=== PATIENT | male | born 1945 | race Caucasian/White ===

== ENCOUNTER 2016-04-04 08:49 | Inpatient (IN) | payer MEDICARE, OTHER ==
[~2016-04-04] VITALS: Ht 182.9 cm; Wt 81.6 kg
[~2016-04-04 08:49] MED LIST: ASPI325T PO; ENAL5 PO; METO25 PO; NITR.4 SL
[2016-04-04 08:50] VITALS: BP 141/79; PULSE 98; RESP 20; TEMP 98.2; O2SAT 98
[2016-04-04 09:06] VITALS: BP 126/85; PULSE 87; RESP 18; O2SAT 100
[2016-04-04] MEDS ORDERED: ENAL5TAB98 PO (09:11)
[2016-04-04] MEDS ORDERED: METO25TA3 PO (09:11)
[2016-04-04] MEDS ORDERED: ONDANSETRON HCL 4 MG/2 ML VIAL IV PUSH ONE (10:00)
[2016-04-04] MEDS ORDERED: MORPHINE SULFATE 4 MG/ML INJ IV PUSH ONE (10:00)
[2016-04-04 10:10] VITALS: O2SAT 99
[2016-04-04 10:19] LABS: AUTOMATED NEUTROPHIL # 16.4 TH/MM3 (1.8-7.7); BASOPHIL # 0.3 TH/MM3 (0-0.2); BASOPHIL % 1.7 % (0.0-2.0); EOSINOPHIL % 0.1 % (0.0-4.0); HEMATOCRIT 43.8 % (39.0-51.0); LYMPH % 4.2 % (9.0-44.0); LYMPHOCYTE # 0.8 TH/MM3 (1.0-4.8); MEAN CELL VOLUME 92.8 FL (80.0-100.0); MEAN CORPUSCULAR HEMOGLOBIN 31.3 PG (27.0-34.0); MEAN CORPUSCULAR HGB CONC 33.7 % (32.0-36.0); MONO % 7.2 % (0.0-8.0); NEUT % 86.8 % (16.0-70.0); PLATELET COUNT 382 TH/MM3 (150-450); RED BLOOD COUNT 4.72 MIL/MM3 (4.50-5.90); RED CELL DISTRIBUTION WIDTH 12.6 % (11.6-17.2); WHITE BLOOD COUNT 18.9 TH/MM3 (4.0-11.0)
[2016-04-04 10:20] LABS: HEMO FLAGS DIFF FINAL
[2016-04-04 10:29] LABS: APTT (PATIENT) 29.9 SEC (24.3-30.1); BICARBONATE 24.9 MEQ/L (21.0-32.0); PROTHROMBIN TIME - PATIENT 10.5 SEC (9.8-11.6)
--- NOTE | 2016-04-04 10:32 | PD ---
HPI Chief Complaint: Headache Time Seen by Provider: 09:51 Travel History International Travel<30 days: No Contact w/Intl Traveler<30days: No Traveled to known affect area: No History of Present Illness HPI 70-year-old male complains of headache, neck pain. Patient states that he started having throbbing headache for the head with radiation to the back of the head last night. Patient started having severe neck pain this morning. Patient denies any visual change. Patient denies any recent head injury. Patient denies any nausea vomiting. Patient denies any focal weakness and numbness of extremity. Patient states that his systolic blood pressure to the 90s this morning. Patient denies any chest pain or shortness of breath. Patient denies abdominal pain. PFSH Past Medical History Autoimmune Disease: No Cancer: No Cardiovascular Problems: Yes Diminished Hearing: No Endocrine: No Genitourinary: Yes Hypertension: Yes Immune Disorder: No Kidney Stones: Yes Musculoskeletal: Yes (joint soreness from baseball) Neurologic: Yes Psychiatric: No Reproductive: No Respiratory: No Immunizations Current: Yes Myocardial Infarction: Yes Influenza Vaccination: No ?: Not Past Surgical History Abdominal Surgery: Yes (hernia) Other Surgery: Yes Social History Alcohol Use: Yes (occas) Tobacco Use: No Substance Use: Yes (marijuana) Allergies-Medications (Allergen,Severity, Reaction): Coded Allergies: No Known Allergies (Unverified , 04/04/16) Reported Meds & Prescriptions Reported Meds & Active Scripts Active Reported Vasotec (Enalapril Maleate) 5 Mg Tab 5 Mg PO DAILY Metoprolol Tartrate 25 Mg Tab 12.5 Mg PO BID Review of Systems General / Constitutional: No: Fever Eyes: No: Visual changes HENT: Positive: Headaches, Neck Pain Cardiovascular: No: Chest Pain or Discomfort Respiratory: No: Shortness of Breath Gastrointestinal: No: Abdominal Pain Genitourinary: No: Dysuria Musculoskeletal: No: Pain Skin: No Rash Neurologic: No: Weakness Psychiatric: No: Depression Endocrine: No: Polydipsia Hematologic/Lymphatic: No: Easy Bruising Physical Exam Narrative GENERAL: Well-nourished, well-developed patient. SKIN: Warm and dry. HEAD: Normocephalic. EYES: No scleral icterus. No injection or drainage. Pupil 2 mm equal reactive. NECK: Supple, trachea midline. No JVD or lymphadenopathy. Moderate tenderness on palpation paraspinal areas cervical spine. No midline tenderness. Patient unable to flex or extend the neck without severe pain. CARDIOVASCULAR: Regular rate and rhythm without murmurs, gallops, or rubs. RESPIRATORY: Breath sounds equal bilaterally. No accessory muscle use. GASTROINTESTINAL: Abdomen soft, non-tender, nondistended. MUSCULOSKELETAL: No cyanosis, or edema. BACK: Nontender without obvious deformity. No CVA tenderness. Neurologic exam: Patient is awake and alert oriented 3. No obvious focal neurological deficit. Data Data Last Documented VS Vital Signs Date Time Temp Pulse Resp B/P Pulse Ox O2 Delivery O2 Flow Rate FiO2 04/04/16 10:35 18 04/04/16 10:10 99 Room Air 04/04/16 09:06 87 126/85 04/04/16 08:50 98.2 Orders Complete Blood Count With Diff (04/04/16 09:56) Basic Metabolic Panel (Bmp) (04/04/16 09:56) Prothrombin Time / Inr (Pt) (04/04/16 09:56) Act Partial Throm Time (Ptt) (04/04/16 09:56) Westergren Sedimentation Rate (04/04/16 09:56) Ct Brain W/O Iv Contrast(Rout) (04/04/16 09:56) Iv Access Insert/Monitor (04/04/16 09:56) Ecg Monitoring (04/04/16 09:56) Oximetry (04/04/16 09:56) Ct Cerv Spine W/O Contrast (04/04/16 09:56) Morphine Inj (Morphine Inj) (04/04/16 10:00) Ondansetron Inj (Zofran Inj) (04/04/16 10:00) Labs Laboratory Tests Test 04/04/16 10:11 White Blood Count 18.9 TH/MM3 Red Blood Count 4.72 MIL/MM3 Hemoglobin 14.8 GM/DL Hematocrit 43.8 % Mean Corpuscular Volume 92.8 FL Mean Corpuscular Hemoglobin 31.3 PG Mean Corpuscular Hemoglobin 33.7 % Concent Red Cell Distribution Width 12.6 % Platelet Count 382 TH/MM3 Mean Platelet Volume 7.3 FL Neutrophils (%) (Auto) 86.8 % Lymphocytes (%) (Auto) 4.2 % Monocytes (%) (Auto) 7.2 % Eosinophils (%) (Auto) 0.1 % Basophils (%) (Auto) 1.7 % Neutrophils # (Auto) 16.4 TH/MM3 Lymphocytes # (Auto) 0.8 TH/MM3 Monocytes # (Auto) 1.4 TH/MM3 Eosinophils # (Auto) 0.0 TH/MM3 Basophils # (Auto) 0.3 TH/MM3 CBC Comment DIFF FINAL Differential Comment Erythrocyte Sedimentation Rate 45 mm/hr Prothrombin Time 10.5 SEC Prothromb Time International 1.0 RATIO Ratio Activated Partial 29.9 SEC Thromboplast Time Sodium Level 135 MEQ/L Potassium Level 4.0 MEQ/L Chloride Level 100 MEQ/L Carbon Dioxide Level 24.9 MEQ/L Anion Gap 10 MEQ/L Blood Urea Nitrogen 9 MG/DL Creatinine 0.72 MG/DL Estimat Glomerular Filtration 108 ML/MIN Rate Random Glucose 151 MG/DL Calcium Level 9.3 MG/DL [facility] [place] Medical Decision Making Medical Screen Exam Complete: Yes Emergency Medical Condition: Yes Interpretation(s) Last Impressions Head CT 04/04/16 0956 Signed Impressions: Service Date/Time: Monday, April 04, 2016 10:22 - CONCLUSION: 1. No acute intracranial abnormality. 2. Mild mucosal thickening within the right maxillary sinus. Akbar Singh MD 11:42 AM. CBC WBC 18.9. 86 neutrophil. ESR 45. Sodium 135. Differential Diagnosis Differential diagnosis including migraine headache, tension headache, cluster headache, cervical strain, fracture, HNP. Narrative Course 70-year-old male with headache and neck pain. Nontraumatic. Morphine 2 mg IV. Zofran 4 mg IV. Normal saline solution 100 cc an hour. Rocephin 2 g IV. Zovirax 800 mg IV. Diagnosis Primary Impression: Cephalgia Qualified Code: R51 - Acute nonintractable headache, unspecified headache type Salvador Bhatia MD Apr 04, 2016 10:00 Salvador Bhatia MD Apr 04, 2016 10:00
--- NOTE | 2016-04-04 10:41 | RADHPO ---
EXAM DATE/TIME: 04/04/2016 10:22 [facility] COMPARISON: No previous studies available for comparison. INDICATIONS : Head and neck pain. No known injury. RADIATION DOSE: 57.25 CTDIvol (mGy) MEDICAL HISTORY : Cardiovascular disease. Hypertension. SURGICAL HISTORY : None. ENCOUNTER: Initial ACUITY: 1 day PAIN SCALE: 4/10 LOCATION: cranial TECHNIQUE: Multiple contiguous axial images were obtained of the head. Using automated exposure control and adj ustment of the mA and/or kV according to patient size, radiation dose was kept as low as reasonably a chievable to obtain optimal diagnostic quality images. FINDINGS: CEREBRUM: The ventricles are normal for age. No evidence of midline shift, mass lesion, hemorrhage or acute in farction. No extra-axial fluid collections are seen. POSTERIOR FOSSA: The cerebellum and brainstem are intact. The 4th ventricle is midline. The cerebellopontine angle i s unremarkable. EXTRACRANIAL: The visualized portion of the orbits is intact. Mild mucosal thickening is noted within the right max illary sinus. SKULL: The calvaria is intact. No evidence of skull fracture. CONCLUSION: 1. No acute intracranial abnormality. 2. Mild mucosal thickening within the right maxillary sinus. Akbar Singh MD on April 04, 2016 at 10:38 Board Certified Radiologist. This report was verified electronically.
--- NOTE | 2016-04-04 11:08 | RADHPO ---
EXAM DATE/TIME: 04/04/2016 10:22 [facility] COMPARISON: No previous studies available for comparison. INDICATIONS: Head and neck pain. No known injury. RADIATION DOSE: 26.75 CTDIvol (mGy) MEDICAL HISTORY: Cardiovascular disease. Hypertension. SURGICAL HISTORY: None. ENCOUNTER: Initial ACUITY: 1 day PAIN SCALE: 4/10 LOCATION: Neck TECHNIQUE: Volumetric scanning of the cervical spine was performed. Multiplanar reconstructions in the sagittal, coronal and oblique axial planes were performed. Using automated exposure control and adjustment o f the mA and/or kV according to patient size, radiation dose was kept as low as reasonably achievable to obtain optimal diagnostic quality images. FINDINGS: There are extensive degenerative changes in the cervical spine. Alignment is anatomic. At C1 and C2 degenerative changes are present. C2-C3: Moderate facet disease is present on the right with right neural foramina encroachment. C3-C4: Bilateral neural foramina encroachment is present. There is no significant spinal stenosis. C4-C5: Moderate uncinate ridging is present with bilateral neural foramina encroachment. Spinal stenosis is moderate. C5-C6: Moderate uncinate ridging is present with spinal stenosis. C6-C7: Moderate interspace ridging and neural foramina encroachment is present. Spinal stenosis is mild to moderate. C7-T1: The bony spinal canal is normal in size. No evidence of disc bulge or herniation. The neural forami na are bilaterally patent. CONCLUSION: 1. Degenerative changes without fracture. Jaret Patel MD FACR on April 04, 2016 at 10:45 Board Certified Radiologist. This report was verified electronically.
[2016-04-04] MEDS ORDERED: cefTRIAXone INJ 2,000 MG in SODIUM CHLORIDE 0.9% INJ 100 ML IV ONE (12:00)
[2016-04-04] MEDS ORDERED: ACYCLOVIR INJ 800 MG in SODIUM CHLORIDE 0.9% INJ 150 ML IV ONE (12:00)
[2016-04-04] MEDS: SODIUM CHLOR 0.9% 1000 ML INJ 1,000 ML IV SCH ×3 (12:22→22:22)
[2016-04-04] MEDS ORDERED: NALOXONE HCL 0.4 MG/ML AMP IV PRN (14:15)
[2016-04-04] MEDS ORDERED: ACETAMINOPHEN 325 MG TAB PO PRN (14:15)
[2016-04-04] MEDS ORDERED: ONDANSETRON HCL 4 MG/2 ML VIAL IVP PRN (14:15)
[2016-04-04 14:20] VITALS: BP 140/75
--- NOTE | 2016-04-04 15:38 | PD.CONS ---
History of Present Illness Service ID CONSULT DR SCHRADER Consult Requested By DR ABBASI Reason for Consult HEADACHE/NECK PAIN Primary Care Physician Jaret Babcock DO Diagnoses: (1) Cephalgia History of Present Illness 70 Y/O MALE RETIRED ADM WITH ACUTE ONSET OF COPPOLA AND POSTERIOR NECK PAIN THAT STARTED LAST NIGHT. HE DENIES FEVER OR CHILLS. HE STATES HE HAS NOT DONE ANY STRENUOUS ACTIVITY OTHER THAN 3 WEEKS AGO FALLING ON HIS RIGHT HIP WHILE PLAYING SOFT BALL. HE HAS NO PHOTOPHOBIA. HE IS ALSO NOTED TO HAVE SOME NECK STIFFNESS AND IT IS TENDER TO TOUCH. HE DOES NOT HAVE TEETH. NO NVD. NO RECENT PROCEDURES. WBC 18.9 (Edyta Charles) History of Present Illness Neck pain, headache. No vomiting or fever. No photophobia Travel to [facility] in Jan. (Radha Schrader MD) Review of Systems Constitutional: DENIES: Fatigue, Fever, Chills Endocrine: DENIES: Polyuria Eyes: DENIES: Eye inflammation Respiratory: DENIES: Snoring Gastrointestinal: DENIES: Black stools Genitourinary: DENIES: Urinary frequency Musculoskeletal: COMPLAINS OF: Stiffness (NECK ) Integumentary: DENIES: Nail changes Psychiatric: DENIES: Mood changes (Edyta Charles) Past Family Social History Allergies: Coded Allergies: No Known Allergies (Unverified , 04/04/16) Past Medical History PFSH Past Medical History Autoimmune Disease: No Cancer: No Cardiovascular Problems: Yes Diminished Hearing: No Endocrine: No Genitourinary: Yes Hypertension: Yes Immune Disorder: No Kidney Stones: Yes Musculoskeletal: Yes (joint soreness from baseball) Neurologic: Yes Psychiatric: No Reproductive: No Respiratory: No Immunizations Current: Yes Myocardial Infarction: Yes Influenza Vaccination: No ?: Not Past Surgical History Past Surgical History Abdominal Surgery: Yes (hernia) Other Surgery: Yes Reported Medications Reported Meds & Prescriptions Reported Meds & Active Scripts Active Reported Vasotec (Enalapril Maleate) 5 Mg Tab 5 Mg PO DAILY Metoprolol Tartrate 25 Mg Tab 12.5 Mg PO BID Family History NON CONTRIBUTORY Social History Social History Alcohol Use: Yes (occas) Tobacco Use: No Substance Use: Yes (marijuana) (Edyta Charles) Physical Exam Vital Signs Vital Signs Date Time Temp Pulse Resp B/P Pulse Ox O2 Delivery O2 Flow Rate FiO2 04/04/16 14:20 89 18 140/75 98 04/04/16 10:35 18 04/04/16 10:10 99 Room Air 04/04/16 09:06 87 18 126/85 100 Room Air 04/04/16 09:06 85 100 Room Air 04/04/16 08:50 98.2 98 20 141/79 98 Physical Exam GENERAL: This is a well-nourished, well-developed patient, in no apparent distress. SKIN: No rashes, ecchymoses or lesions. Cool and dry. HEAD: Atraumatic. Normocephalic. No temporal or scalp tenderness. EYES: Pupils equal round and reactive. Extraocular motions intact. No scleral icterus. No injection or drainage. ENT: Nose without bleeding, purulent drainage or septal hematoma. Throat without erythema, tonsillar hypertrophy or exudate. Uvula midline. Airway patent. NECK: Trachea midline. No JVD or lymphadenopathy. Supple, very tender at the nape of his neck no swelling or redness , ++ meningeal signs. CARDIOVASCULAR: Regular rate and rhythm without murmurs, gallops, or rubs. RESPIRATORY: Clear to auscultation. Breath sounds equal bilaterally. No wheezes , rales, or rhonchi. GASTROINTESTINAL: Abdomen soft, non-tender, nondistended. No hepato-splenomegaly , or palpable masses. No guarding. MUSCULOSKELETAL: Extremities without clubbing, cyanosis, or edema. No joint tenderness, effusion, or edema noted. No calf tenderness. Negative Homans sign bilaterally. NEUROLOGICAL: Awake and alert. Cranial nerves II through XII intact. Motor and sensory grossly within normal limits. Five out of 5 muscle strength in all muscle groups. Normal speech. Laboratory Laboratory Tests Test 04/04/16 10:11 White Blood Count 18.9 Red Blood Count 4.72 Hemoglobin 14.8 Hematocrit 43.8 Mean Corpuscular Volume 92.8 Mean Corpuscular Hemoglobin 31.3 Mean Corpuscular Hemoglobin 33.7 Concent Red Cell Distribution Width 12.6 Platelet Count 382 Mean Platelet Volume 7.3 Neutrophils (%) (Auto) 86.8 Lymphocytes (%) (Auto) 4.2 Monocytes (%) (Auto) 7.2 Eosinophils (%) (Auto) 0.1 Basophils (%) (Auto) 1.7 Neutrophils # (Auto) 16.4 Lymphocytes # (Auto) 0.8 Monocytes # (Auto) 1.4 Eosinophils # (Auto) 0.0 Basophils # (Auto) 0.3 CBC Comment DIFF FINAL Differential Comment Erythrocyte Sedimentation Rate 45 Prothrombin Time 10.5 Prothromb Time International 1.0 Ratio Activated Partial 29.9 Thromboplast Time Sodium Level 135 Potassium Level 4.0 Chloride Level 100 Carbon Dioxide Level 24.9 Anion Gap 10 Blood Urea Nitrogen 9 Creatinine 0.72 Estimat Glomerular Filtration 108 Rate Random Glucose 151 Calcium Level 9.3 (Edyta Charles) Physical Exam Alert/ oriented x 3- lying flat in bed No photophobia No rash No focal deficit (Radha Schrader MD) Result Diagram: 04/04/16 1011 04/04/16 1011 Assessment and Plan Problem List: (1) Cephalgia Status: Acute Plan: r/o menigitis going down for LP exam ? arthralgia continue rocephin/acyclovir add vanco for now follow trough seen exam with dr schrader (Edyta Charles) Problem List: (1) Cephalgia Status: Acute Plan: r/o menigitis going down for LP exam ? arthralgia continue rocephin/acyclovir add vanco for now follow trough seen exam with dr schrader Reviewed preliminary CSF results- Gram stain negative 0 WBC Follow CSF studies Check Blood cultures, UA and culture Continue IV Ceftriaxone and Acyclovir Stop Vancomycin Check Lyme serology (Radha Schrader MD) Problem Qualifiers (1) Cephalgia: Qualified Code: R51 - Acute nonintractable headache, unspecified headache type Edyta Charles Apr 04, 2016 15:38 Radha Schrader MD Apr 04, 2016 21:31
[2016-04-04 16:20] VITALS: BP 159/96; PULSE 71; RESP 16; TEMP 98.6; O2SAT 98
--- NOTE | 2016-04-04 16:44 | PD.RAD ---
Post Procedure Progress Note Pre Procedure Diagnosis: (1) Cephalgia Post Procedure Diagnosis: (1) Cephalgia Procedure Date: Apr 04, 2016 Supervising Radiologist: Kvng Lyles Proceduralist/Assist: Bebe Shah, RT(R)(), Farhat Hernandez RT(R) Anesthesia: Local Plan of Activity Patient Condition: Good See PACS Report for procedural detail/treatment Spinal Procedure Lumbar Puncture L3-L4 Fluid Removal (CCs): 8 Fluid Description: Clear Puncture Time: 16:27 Kvng Lyles MD Apr 04, 2016 16:44
[2016-04-04] MEDS ORDERED: Vancomycin Consult Pharmacy XX SCH (16:45)
[2016-04-04 17:43] LABS: GROSS BLOOD TUBE #1 0 (0); GROSS BLOOD TUBE #2 0 (0); GROSS BLOOD TUBE #3 0 (0); SUPERNATE COLOR TUBE #1 CLEAR (CLEAR); SUPERNATE COLOR TUBE #2 CLEAR (CLEAR); SUPERNATE COLOR TUBE #3 CLEAR (CLEAR)
[2016-04-04 17:44] LABS: CSF LYMPHOCYTES 0 %; CSF NEUTROPHILS 0 %; GROSS BLOOD TUBE #4 0 (0); SUPERNATE COLOR TUBE #4 CLEAR (CLEAR)
[2016-04-04] MEDS ORDERED: VANCOMYCIN INJ 1,700 MG in SODIUM CHLORID 0.9% 500 ML INJ 500 ML IV SCH (18:00)
[2016-04-04] MEDS: HYDROmorphone HCL PF 1 MG/ML VIAL IV PRN ×2 (18:13→22:20)
[2016-04-04 20:00] VITALS: BP 154/85; PULSE 74; PULSE 80; RESP 18; TEMP 97.6; O2SAT 98
[2016-04-04] MEDS: SODIUM CHLORIDE 0.9% FLUSH 5 ML FLUSH FLUSH SCH (20:15)
[2016-04-04] MEDS: ACYCLOVIR INJ 700 MG in SODIUM CHLORIDE 0.9% INJ 100 ML IV SCH (20:35)
[2016-04-04] MEDS: cefTRIAXone INJ 2,000 MG in SODIUM CHLORIDE 0.9% INJ 100 ML IV SCH (23:13)
[2016-04-05] VITALS (7 sets, daily range): BP systolic 128–166; BP diastolic 72–106; PULSE 62–85; RESP 16–20; TEMP 97.2–98.3; O2SAT 96–99
[2016-04-05] MEDS: SODIUM CHLOR 0.9% 1000 ML INJ 1,000 ML IV SCH ×5 (00:07→19:33)
[2016-04-05] MEDS: ACETAMINOPHEN/HYDROcodone 325 MG/5 MG TAB PO PRN ×5 (02:36→21:08)
[2016-04-05] MEDS: ACYCLOVIR INJ 700 MG in SODIUM CHLORIDE 0.9% INJ 100 ML IV SCH ×3 (04:00→20:17)
[2016-04-05 06:45] LABS: AUTOMATED NEUTROPHIL # 11.3 TH/MM3 (1.8-7.7); BASOPHIL % 0.2 % (0.0-2.0); EOSINOPHIL % 0.1 % (0.0-4.0); HEMATOCRIT 39.8 % (39.0-51.0); HEMO FLAGS DIFF FINAL; LYMPH % 9.2 % (9.0-44.0); LYMPHOCYTE # 1.3 TH/MM3 (1.0-4.8); MEAN CELL VOLUME 94.7 FL (80.0-100.0); MEAN CORPUSCULAR HEMOGLOBIN 32.1 PG (27.0-34.0); MONO % 11.3 % (0.0-8.0); NEUT % 79.2 % (16.0-70.0); PLATELET COUNT 331 TH/MM3 (150-450); RED BLOOD COUNT 4.21 MIL/MM3 (4.50-5.90); WHITE BLOOD COUNT 14.2 TH/MM3 (4.0-11.0)
[2016-04-05 07:10] LABS: CHLORIDE 101 MEQ/L (98-107); POTASSIUM 3.7 MEQ/L (3.5-5.1); SODIUM (NA) 137 MEQ/L (136-145)
[2016-04-05 07:13] LABS: ANION GAP 9 MEQ/L (5-15); BICARBONATE 27.1 MEQ/L (21.0-32.0)
[2016-04-05 07:14] LABS: BLOOD UREA NITROGEN 9 MG/DL (7-18)
[2016-04-05 07:16] LABS: ALT (GPT) LESS THAN 6 U/L (12-78); AST (GOT) 3 U/L (15-37)
[2016-04-05 07:17] LABS: GLOMERULAR FILTRATION RATE 126 ML/MIN (>89)
[2016-04-05 07:18] LABS: TOTAL BILIRUBIN ADULT 0.6 MG/DL (0.2-1.0)
[2016-04-05 07:19] LABS: ALKALINE PHOSPHATASE 49 U/L (45-117)
[2016-04-05] MEDS: SODIUM CHLORIDE 0.9% FLUSH 5 ML FLUSH FLUSH SCH ×2 (08:15→20:04)
[2016-04-05] MEDS ORDERED: PILL SPLITTER OTHER PRN (10:15)
--- NOTE | 2016-04-05 10:24 | MH ---
cc: PUNEET ABBASI MD DATE OF ADMISSION 04/04/2016 CHIEF COMPLAINT Headache HISTORY OF PRESENT ILLNESS This is a 70-year-old male with past medical and surgical history significant for hypertension, kidney stones, history of myocardial infarction, history of hernia repair who came to the ER at [facility] complaining of headache and neck pain. The patient stated that having a throbbing headache all over the head radiating to the back of the head last night and the patient started having severe neck pain this morning. The patient denies any visual changes. Denies any hearing problem. Denies any recent head injury. Denies any nausea or vomiting. Denies any diarrhea or constipation. The patient denies any focal weakness and numbness of the extremities. The patient states the systolic blood pressure was to the 90s this morning and denies any other symptoms. Other than that, nothing significant. PAST MEDICAL AND SURGICAL HISTORY As dictated above. SOCIAL HISTORY Denies smoking, drinks alcohol occasionally, abuses marijuana. Denies smoking. Lives at home with a roommate. He is retired as a teacher. ALLERGIES NO KNOWN DRUG ALLERGIES. MEDICATIONS Include: 1. Vasotec 5 mg p.o. daily 2. Metoprolol 12.5 mg twice a day REVIEW OF SYSTEMS Positive for mild headaches. All other review of systems are negative. PHYSICAL EXAMINATION This is a 70-year-old male sitting on the bed not in acute distress. VITAL SIGNS: Temperature 97.8, heart rate 74, respirations 18, blood pressure 166/89, O2 saturation 96% on room air. HEENT: Normocephalic, atraumatic. EOMI. PERRL, oral mucosa moist. NECK: Supple. No visible thyromegaly or neck mass. Trachea is central. Moderate tenderness on palpation in the paraspinal area cervical spine. No midline tenderness. Unable to flex or extend the neck without severe pain. CARDIOVASCULAR: Regular rate and rhythm. RESPIRATORY: Respirations are clear to auscultation bilaterally. ABDOMEN: Soft, nontender. Bowel sounds audible. EXTREMITIES: No cyanosis or clubbing. Full range of motion of all extremities. NEUROLOGIC: Awake, alert, and oriented x4. No focal deficits. SKIN: Warm and dry. PSYCH: The patient is cooperative, mood and affect is normal. LABORATORY DATA Include CBC is totally unremarkable except for WBC count was 18.9, now it is 14.2, neutrophils 79.2 high, monos 11.3 high. BMP totally unremarkable except for a sodium of 135 now it is 137. LFTs are normal except albumin 2.9 low. PT 10.5, INR 1.0, APTT 29.9. CSF volume is 2.0, clear, glucose 72, total protein 54. Lyme titer pending. Herpes simplex virus pending. Blood cultures x2 done negative so far. CSF culture done shows no growth in [address] scan of the brain was done shows no acute intracranial abnormality, mild mucosal thickening within the right maxillary sinus. CT cervical spine done shows degenerative changes without fracture. ASSESSMENT/PLAN 1. This is a 70-year-old male who came to the ER diagnosed with severe neck pain with decreased range of motion and neck stiffness with headache, rule out meningitis. The patient had a CSF analysis done that shows a pure protein of 54, glucose 72. The patient is on Rocephin two grams IV [id number] and also acyclovir 700 mg q8-hour also on Dilaudid for headache. Infectious disease consulted. Further recommendation per infectious disease, 2. History of hypertension, blood pressure is high. Started on home blood pressure medicine. We will start clonidine 0.1 mg q6h p.r.n. if blood pressure is above 170/90. 3. History of kidney stones. 4. DVT prophylaxis, SCD. 5. GI prophylaxis, Protonix 40 mg p.o. daily. 6. We are going to manage the patient on a daily basis and make recommendations on a daily basis. Puneet Abbasi MD EA/GALE /9:50 AM /10:06 AM
[2016-04-05] MEDS: PANTOPRAZOLE SOD 40 MG DELAYED RELEASE TAB PO SCH (11:11)
[2016-04-05] MEDS: ENALAPRIL MALEATE 5 MG TAB PO SCH (11:11)
[2016-04-05] MEDS: METOPROLOL TARTRATE 25 MG TAB PO SCH ×2 (11:11→21:07)
[2016-04-05] MEDS: cefTRIAXone INJ 2,000 MG in SODIUM CHLORIDE 0.9% INJ 100 ML IV SCH ×2 (11:13→23:05)
--- NOTE | 2016-04-05 15:23 | RADHPO ---
EXAM DATE/TIME: 03/01/2002 23:34 [facility] COMPARISON: No previous studies available for comparison. INDICATIONS : Patient with a history of headaches. MEDICAL HISTORY : Cardiovascular problems HTN SURGICAL HISTORY : Hernia surgery ENCOUNTER: Initial ACUITY: 1 day PAIN SCORE: 8/10 LOCATION: Headache LUMBAR PUNCTURE TIME: 1627 hours FLUORO TIME: 1.08 minutes ACCESS LEVEL: L3-4 FLUID: 8 cc of clear CSF was collected and sent to the laboratory for analysis. PROCEDURE : 1. Fluoroscopic guided lumbar puncture. The risks, benefits and alternatives to the procedure were explained and verbal and written consent w as obtained. The site was prepped in sterile fashion. Full sterile technique was used, including ca p, mask, sterile gloves and gown and a large sterile sheet. Hand hygiene and 2% chlorhexidine and/or betadine/alcohol prep was utilized per protocol for cutaneous antisepsis. The skin and subcutaneous tissues were infiltrated with local anesthetic solution. With fluoroscopic guidance the lumbar thecal sac was punctured at the level above. The fluid describ ed above was removed without difficulty. The patient tolerated the procedure well and there were no complications. CONCLUSION: Uncomplicated fluoroscopically guided lumbar puncture. Kvng Llyes MD on April 05, 2016 at 15:20 Board Certified Radiologist. This report was verified electronically.
[2016-04-05 17:48] LABS: BLOOD, URINE TRACE (NEG); GLUCOSE,URINE NEG (NEG); KETONE, URINE NEG (NEG); NITRITE,URINE NEG (NEG)
[2016-04-05 17:54] LABS: METHOD OF COLLECTION CLEAN CATCH; URINE COLOR YELLOW (YELLW/STRAW)
[2016-04-05 17:55] LABS: COMMENT (UR) CULT NOT INDICATED; CULTURE IF INDICATED CULT NOT INDICATED; SQUAMOUS EPITHELIAL CELL URINE 0-5 /hpf (0-5)
--- NOTE | 2016-04-05 19:06 | HHI.IDPN ---
Subjective Subjective Remarks Chart reviewwd 70 yo M presented with neck pain and headach No fever, but WBC up to 18 K LP was done to r/o meningitis CSF not cw infx Pt states significant improvement in his neck pain though he still is quite painful Heaache resolved no nausea, vomiting Antibiotics Acyclovir CFTX Past Medical History remote heavy tobacco 2 ppd, quit 10 yrs ago Allergies: Coded Allergies: No Known Allergies (Unverified , 04/04/16) Objective . Vital Signs Date Time Temp Pulse Resp B/P Pulse Ox O2 Delivery O2 Flow Rate FiO2 04/05/16 16:00 97.2 78 18 128/72 97 04/05/16 12:00 98.1 77 18 158/78 96 04/05/16 08:15 62 04/05/16 08:00 97.8 74 18 166/89 96 04/05/16 04:00 98.3 76 18 159/106 99 04/05/16 03:43 18 04/05/16 00:00 97.4 75 16 162/91 98 04/04/16 22:52 18 04/04/16 20:00 74 04/04/16 20:00 97.6 80 18 154/85 98 04/04/16 04/04/16 04/05/16 15:00 23:00 07:00 Intake Total 550 ml 520 ml 120 ml Balance 550 ml 520 ml 120 ml Intake Oral 520 ml 120 ml IV Total 550 ml # Voids 2 1 # Bowel Movements 0 0 . Laboratory Tests Test 04/04/16 04/05/16 10:11 06:10 White Blood Count 18.9 TH/MM3 14.2 TH/MM3 Red Blood Count 4.72 MIL/MM3 4.21 MIL/MM3 Hemoglobin 14.8 GM/DL 13.5 GM/DL Hematocrit 43.8 % 39.8 % Mean Corpuscular Volume 92.8 FL 94.7 FL Mean Corpuscular Hemoglobin 31.3 PG 32.1 PG Mean Corpuscular Hemoglobin 33.7 % 34.0 % Concent Red Cell Distribution Width 12.6 % 13.0 % Platelet Count 382 TH/MM3 331 TH/MM3 Mean Platelet Volume 7.3 FL 7.4 FL Neutrophils (%) (Auto) 86.8 % 79.2 % Lymphocytes (%) (Auto) 4.2 % 9.2 % Monocytes (%) (Auto) 7.2 % 11.3 % Eosinophils (%) (Auto) 0.1 % 0.1 % Basophils (%) (Auto) 1.7 % 0.2 % Neutrophils # (Auto) 16.4 TH/MM3 11.3 TH/MM3 Lymphocytes # (Auto) 0.8 TH/MM3 1.3 TH/MM3 Monocytes # (Auto) 1.4 TH/MM3 1.6 TH/MM3 Eosinophils # (Auto) 0.0 TH/MM3 0.0 TH/MM3 Basophils # (Auto) 0.3 TH/MM3 0.0 TH/MM3 CBC Comment DIFF FINAL DIFF FINAL Differential Comment Erythrocyte Sedimentation Rate 45 mm/hr Laboratory Tests Test 04/04/16 04/05/16 10:11 06:10 Sodium Level 135 MEQ/L 137 MEQ/L Potassium Level 4.0 MEQ/L 3.7 MEQ/L Chloride Level 100 MEQ/L 101 MEQ/L Carbon Dioxide Level 24.9 MEQ/L 27.1 MEQ/L Anion Gap 10 MEQ/L 9 MEQ/L Blood Urea Nitrogen 9 MG/DL 9 MG/DL Creatinine 0.72 MG/DL 0.63 MG/DL Estimat Glomerular Filtration 108 ML/MIN 126 ML/MIN Rate Random Glucose 151 MG/DL 103 MG/DL Calcium Level 9.3 MG/DL 8.7 MG/DL Total Bilirubin 0.6 MG/DL Aspartate Amino Transf 3 U/L (AST/SGOT) Alanine Aminotransferase LESS THAN 6 U/L (ALT/SGPT) Alkaline Phosphatase 49 U/L Total Protein 7.1 GM/DL Albumin 2.9 GM/DL Microbiology Date/Time Procedure Status Source Growth 04/04/16 16:27 Gram Stain - Final Resulted Cerebral Spinal Fluid Lumbar Puncture 04/04/16 16:27 CSF Culture - Preliminary Resulted Cerebral Spinal Fluid Lumbar Puncture NO GROWTH IN 24 HOURS. 04/04/16 18:00 Aerobic Blood Culture - Preliminary Resulted Blood Peripheral NO GROWTH IN 1 DAY 04/04/16 18:00 Anaerobic Blood Culture - Preliminary Resulted Blood Peripheral NO GROWTH IN 1 DAY 04/04/16 18:10 Aerobic Blood Culture - Preliminary Resulted Blood Peripheral NO GROWTH IN 1 DAY 04/04/16 18:10 Anaerobic Blood Culture - Preliminary Resulted Blood Peripheral NO GROWTH IN 1 DAY Imaging Last Impressions Head CT 04/04/16 0956 Signed Impressions: Service Date/Time: Monday, April 04, 2016 10:22 - CONCLUSION: 1. No acute intracranial abnormality. 2. Mild mucosal thickening within the right maxillary sinus. Akbar Singh MD Cervical Spine CT 04/04/16 0956 Signed Impressions: Service Date/Time: Monday, April 04, 2016 10:22 - CONCLUSION: 1. Degenerative changes without fracture. Jaret Patel MD FACR Lumbar Puncture Fluoroscopy 04/04/16 0000 Signed Impressions: Service Date/Time: Friday, March 01, 2002 23:34 - CONCLUSION: Uncomplicated fluoroscopically guided lumbar puncture. Kvng Lyles MD Physical Exam GENERAL: This is a well-nourished, well-developed patient, in no apparent distress. Stigmata of substatial weight loss present SKIN: No rashes, ecchymoses or lesions. Cool and dry. HEAD: Atraumatic. Normocephalic. No temporal or scalp tenderness. EYES: Pupils equal round and reactive. Extraocular motions intact. No scleral icterus. No injection or drainage. ENT: Nose without bleeding, purulent drainage or septal hematoma. Throat without erythema, tonsillar hypertrophy or exudate. Uvula midline. Airway patent. NECK: Trachea midline. No JVD or lymphadenopathy. Supple, very tender at the nape of his neck no swelling or redness , Limited ROM in the neck 2/2 pain Tender to palpation more so on the left side CARDIOVASCULAR: Regular rate and rhythm without murmurs, gallops, or rubs. RESPIRATORY: Clear to auscultation. Breath sounds equal bilaterally. No wheezes , rales, or rhonchi. GASTROINTESTINAL: Abdomen soft, non-tender, nondistended. No hepato-splenomegaly , or palpable masses. No guarding. MUSCULOSKELETAL: Extremities without clubbing, cyanosis, or edema. NEUROLOGICAL: Awake and alert. Cranial nerves II through XII intact. Motor and sensory grossly within normal limits. Five out of 5 muscle strength in all muscle groups. Normal speech. Assessment & Plan Remarks (1) Cephalgia, improved on empriric abx CSF not favouring menigitis continue rocephin dc acyclovir once neg HSV back fu P LP studies MRI Akanksha Daniels MD Apr 05, 2016 19:06
[2016-04-06] VITALS: BP_SYST 151; BP_SYST 161; BP_DIAS 95; BP_DIAS 96; PULSE 74; PULSE 80; RESP 20; TEMP 97.9; TEMP 98.7; O2SAT 97; O2SAT 98
[2016-04-06] MEDS: ACETAMINOPHEN/HYDROcodone 325 MG/5 MG TAB PO PRN ×6 (01:07→22:20)
[2016-04-06] MEDS: SODIUM CHLOR 0.9% 1000 ML INJ 1,000 ML IV SCH ×4 (04:13→16:07)
[2016-04-06] MEDS: ACYCLOVIR INJ 700 MG in SODIUM CHLORIDE 0.9% INJ 100 ML IV SCH ×2 (04:15→13:48)
[2016-04-06] MEDS ORDERED: PHARMACY ORDERED LAB XX ONE (05:45)
[2016-04-06 06:40] LABS: AUTOMATED NEUTROPHIL # 8.1 TH/MM3 (1.8-7.7); BASOPHIL % 0.3 % (0.0-2.0); EOSINOPHIL # 0.1 TH/MM3 (0-0.4); EOSINOPHIL % 0.5 % (0.0-4.0); LYMPH % 11.6 % (9.0-44.0); LYMPHOCYTE # 1.2 TH/MM3 (1.0-4.8); MEAN CELL VOLUME 95.5 FL (80.0-100.0); MEAN CORPUSCULAR HEMOGLOBIN 30.9 PG (27.0-34.0); MEAN CORPUSCULAR HGB CONC 32.4 % (32.0-36.0); MONO % 11.7 % (0.0-8.0); NEUT % 75.9 % (16.0-70.0); PLATELET COUNT 331 TH/MM3 (150-450); RED BLOOD COUNT 4.71 MIL/MM3 (4.50-5.90); WHITE BLOOD COUNT 10.7 TH/MM3 (4.0-11.0)
[2016-04-06 06:42] LABS: CHLORIDE 100 MEQ/L (98-107); POTASSIUM 3.8 MEQ/L (3.5-5.1); SODIUM (NA) 137 MEQ/L (136-145)
[2016-04-06 06:48] LABS: ANION GAP 8 MEQ/L (5-15); BICARBONATE 29.2 MEQ/L (21.0-32.0)
[2016-04-06 06:49] LABS: BLOOD UREA NITROGEN 8 MG/DL (7-18)
[2016-04-06 06:51] LABS: GLOMERULAR FILTRATION RATE 138 ML/MIN (>89)
[2016-04-06 06:52] LABS: AST (GOT) 5 U/L (15-37)
[2016-04-06 06:53] LABS: TOTAL BILIRUBIN ADULT 0.5 MG/DL (0.2-1.0)
[2016-04-06 06:54] LABS: ALKALINE PHOSPHATASE 52 U/L (45-117)
[2016-04-06 06:56] LABS: ALT (GPT) 8 U/L (12-78)
[2016-04-06 07:25] LABS: HEMO FLAGS DIFF FINAL
[2016-04-06 08:00] VITALS: BP 141/98; PULSE 56; PULSE 77; RESP 18; TEMP 97.2; O2SAT 99
--- NOTE | 2016-04-06 08:09 | HHI.PR ---
Subjective History of Present Illness Patient feel better headache better getting MRI of Brain and cervical spine d/w SHEKHAR Carrasquillo at bed side. Review of Systems Neurologic Neurologic: Headache Vitals/Results Intake & Output 04/05/16 04/05/16 04/06/16 15:00 23:00 07:00 Intake Total 1040 ml 120 ml Output Total 450 ml 700 ml Balance 590 ml -580 ml Intake Oral 240 ml 120 ml IV Total 800 ml Output Urine Total 450 ml 700 ml # Voids 1 3 # Bowel Movements 0 0 Vital Signs Vital Signs Date Time Temp Pulse Resp B/P Pulse Ox O2 Delivery O2 Flow Rate FiO2 04/06/16 02:33 20 04/06/16 00:00 97.9 74 20 151/96 98 04/06/16 00:00 98.7 80 20 161/95 97 04/05/16 20:00 85 04/05/16 20:00 98.0 74 20 159/93 98 04/05/16 16:00 97.2 78 18 128/72 97 04/05/16 12:00 98.1 77 18 158/78 96 04/05/16 08:15 62 CBC/BMP: 04/06/16 0540 04/06/16 0540 Lab Results Laboratory Tests Test 04/05/16 04/06/16 17:45 05:40 Urine Collection Type CLEAN CATCH Urine Color YELLOW Urine Turbidity CLEAR Urine pH 6.0 Urine Specific [place] 1.016 Urine Protein TRACE mg/dL Urine Glucose (UA) NEG mg/dL Urine Ketones NEG mg/dL Urine Occult Blood TRACE Urine Nitrite NEG Urine Bilirubin NEG Urine Leukocyte Esterase NEG Urine RBC 4-9 /hpf Urine Squamous Epithelial 0-5 /hpf Cells Microscopic Urinalysis Comment CULT NOT INDICATED Urine Collection Time 17:45 White Blood Count 10.7 TH/MM3 Red Blood Count 4.71 MIL/MM3 Hemoglobin 14.6 GM/DL Hematocrit 45.0 % Mean Corpuscular Volume 95.5 FL Mean Corpuscular Hemoglobin 30.9 PG Mean Corpuscular Hemoglobin 32.4 % Concent Red Cell Distribution Width 13.0 % Platelet Count 331 TH/MM3 Mean Platelet Volume 7.6 FL Neutrophils (%) (Auto) 75.9 % Lymphocytes (%) (Auto) 11.6 % Monocytes (%) (Auto) 11.7 % Eosinophils (%) (Auto) 0.5 % Basophils (%) (Auto) 0.3 % Neutrophils # (Auto) 8.1 TH/MM3 Lymphocytes # (Auto) 1.2 TH/MM3 Monocytes # (Auto) 1.3 TH/MM3 Eosinophils # (Auto) 0.1 TH/MM3 Basophils # (Auto) 0.0 TH/MM3 CBC Comment DIFF FINAL Differential Comment Sodium Level 137 MEQ/L Potassium Level 3.8 MEQ/L Chloride Level 100 MEQ/L Carbon Dioxide Level 29.2 MEQ/L Anion Gap 8 MEQ/L Blood Urea Nitrogen 8 MG/DL Creatinine 0.58 MG/DL Estimat Glomerular Filtration 138 ML/MIN Rate Random Glucose 94 MG/DL Calcium Level 9.0 MG/DL Total Bilirubin 0.5 MG/DL Aspartate Amino Transf 5 U/L (AST/SGOT) Alanine Aminotransferase 8 U/L (ALT/SGPT) Alkaline Phosphatase 52 U/L Total Protein 7.6 GM/DL Albumin 3.0 GM/DL Physical Exam General General Appearance: No Acute Distress, Comfortable Eyes Eye Exam: Pupils Equal, Pupils Reactive, Sclera White, Extraocular Movement Intact Throat Throat Exam: Oral Mucosa [place] & Moist, Oral Pharynx Normal Neck Neck Exam: Neck Supple, Trachea Midline Pulmonary Resp Exam: Clear Bilaterally, Breath Sounds Equal, No Distress Cardiology CV Exam: Regular, Normal Sinus Rhythm Gastrointestinal/Abdomen GI Exam: Soft, Non-Tender, Bowel Sounds Present Musculoskeletal MS Exam: Normal Tone Integumentary Skin Exam: Clear, Warm, Dry, Intact Extremeties Extremities Exam: No Edema Neurologic Neuro Exam: Alert, Awake, Oriented, Speech Clear, Moving All Extremities, No Focal Deficits VTE Prophylaxis VTE Prophylaxis Device: SCDs PUD Prophylasis PUD Prophylaxis: Protonix Assessment/Plan Assessment/Plan ASSESSMENT/PLAN 1. This is a 70-year-old male who came to the ER diagnosed with severe neck pain with decreased range of motion and neck stiffness with headache, rule out meningitis. The patient had a CSF analysis done that shows the protein of 54, glucose 72. The patient is on Rocephin two grams IV [id number] and also acyclovir 700 mg q8-hour also on Dilaudid for headache. Infectious disease input noted. getting MRI of Brain and cervical spine Further recommendation per infectious disease, 2. History of hypertension, blood pressure is high. on home blood pressure medicine. on clonidine 0.1 mg q6h p.r.n. if blood pressure is above 170/90. 3. History of kidney stones. 4. DVT prophylaxis, SCD. 5. GI prophylaxis, Protonix 40 mg p.o. daily. 6. We are going to manage the patient on a daily basis and make recommendations on a daily basis. Discussed Condition with: Patient Puneet Mandel MD Apr 06, 2016 08:09
[2016-04-06] MEDS: ENALAPRIL MALEATE 5 MG TAB PO SCH (08:43)
[2016-04-06] MEDS: METOPROLOL TARTRATE 25 MG TAB PO SCH ×2 (08:43→21:23)
[2016-04-06] MEDS: PANTOPRAZOLE SOD 40 MG DELAYED RELEASE TAB PO SCH (08:43)
[2016-04-06] MEDS: SODIUM CHLORIDE 0.9% FLUSH 5 ML FLUSH FLUSH SCH ×2 (08:44→21:00)
[2016-04-06 09:32] LABS: VANCOMYCIN TROUGH LESS THAN 0.8 MCG/ML (5.0-10.0)
[2016-04-06 10:59] LABS: HSV 1,PCR Negative (Negative)
[2016-04-06] MEDS: cefTRIAXone INJ 2,000 MG in SODIUM CHLORIDE 0.9% INJ 100 ML IV SCH (11:57)
[2016-04-06 12:00] VITALS: BP 155/81; PULSE 68; RESP 18; TEMP 98.1; O2SAT 97
[2016-04-06] MEDS ORDERED: GADODIAMIDE PF 287 MG/ML 20 ML VIAL (for RAD MRI) IV ONE (15:28)
[2016-04-06 16:00] VITALS: BP 153/89; PULSE 81; RESP 20; TEMP 98.3; O2SAT 96
--- NOTE | 2016-04-06 17:09 | RADHPO ---
EXAM DATE/TIME: 04/06/2016 15:23 [facility] COMPARISON: No previous studies available for comparison. INDICATIONS : Pain. Headache and neck pain, r/o meningitis. CONTRAST: 16 cc Omniscan (gadodiamide) IV MEDICAL HISTORY : Hypertension. Throat cancer. SURGICAL HISTORY : Left shoulder. Hernia repair. ENCOUNTER: Subsequent ACUITY: 4-6 days PAIN SCORE: 7/10 LOCATION: Neck TECHNIQUE: Multiplanar, multisequence MRI examination of the cervical spine was performed. FINDINGS: By MRI there are degenerative changes present in the marrow of the cervical spine. Cer ebellar tonsils are in normal anatomic position. Signal intensity in the cervical cord is normal. C2-C3: The thecal sac has a normal configuration. There is no evidence of disc herniation or spinal canal stenosis. The neural foramina are patent bilaterally. C3-C4: There is mild uncinate ridging present with minimal right-sided neural foraminal encroachment . C4-C5: Mild uncinate ridging is present with moderate bilateral neural foraminal encroachment. C5-C6: Mild uncinate ridging is present with bilateral neural foraminal encroachment and mild to mod erate spinal stenosis. C6-C7: Uncinate ridging is present with mild to moderate bilateral neural foraminal encroachment and spinal stenosis. C7-T1: The thecal sac has a normal configuration. There is no evidence of disc herniation or spinal canal stenosis. The neural foramina are patent bilaterally. Following intravenous administration of gadolinium there is minimal contrast enhancement in the soft tissues of the neck particularly intraspinous ligaments with C2-C3 and C3-C4. There is some very sub tle nonspecific contrast enhancement evident. CONCLUSION: Nonspecific soft tissue signal enhancement as described above. Degenerative changes i n the cervical spine with mild cervical spinal stenosis. Jaret Patel MD FACR on April 06, 2016 at 16:45 Board Certified Radiologist. This report was verified electronically.
[2016-04-06 20:00] VITALS: BP 156/92; PULSE 85; RESP 16; TEMP 99.6; O2SAT 97
[2016-04-06 21:00] VITALS: PULSE 87
[2016-04-07] VITALS (7 sets, daily range): BP systolic 142–175; BP diastolic 93–98; PULSE 71–93; RESP 18–20; TEMP 97.9–99.2; O2SAT 94–98
[2016-04-07] MEDS: SODIUM CHLOR 0.9% 1000 ML INJ 1,000 ML IV SCH ×5 (01:14→20:00)
[2016-04-07] MEDS: cefTRIAXone INJ 2,000 MG in SODIUM CHLORIDE 0.9% INJ 100 ML IV SCH ×2 (01:14→12:55)
[2016-04-07] MEDS: cloNIDine HCL 0.1 MG TAB PO PRN (02:50)
[2016-04-07] MEDS: ACETAMINOPHEN/HYDROcodone 325 MG/5 MG TAB PO PRN ×5 (02:50→21:13)
[2016-04-07 05:19] LABS: AUTOMATED NEUTROPHIL # 7.6 TH/MM3 (1.8-7.7); BASOPHIL % 0.2 % (0.0-2.0); EOSINOPHIL # 0.1 TH/MM3 (0-0.4); EOSINOPHIL % 0.6 % (0.0-4.0); HEMATOCRIT 38.7 % (39.0-51.0); HEMO FLAGS DIFF FINAL; LYMPH % 9.7 % (9.0-44.0); MEAN CELL VOLUME 93.4 FL (80.0-100.0); MEAN CORPUSCULAR HEMOGLOBIN 31.2 PG (27.0-34.0); MEAN CORPUSCULAR HGB CONC 33.4 % (32.0-36.0); MONO % 12.3 % (0.0-8.0); NEUT % 77.2 % (16.0-70.0); PLATELET COUNT 297 TH/MM3 (150-450); RED BLOOD COUNT 4.14 MIL/MM3 (4.50-5.90); RED CELL DISTRIBUTION WIDTH 12.3 % (11.6-17.2); WHITE BLOOD COUNT 9.9 TH/MM3 (4.0-11.0)
[2016-04-07 05:33] LABS: CHLORIDE 102 MEQ/L (98-107); POTASSIUM 3.5 MEQ/L (3.5-5.1); SODIUM (NA) 138 MEQ/L (136-145)
[2016-04-07 05:37] LABS: ANION GAP 8 MEQ/L (5-15); BLOOD UREA NITROGEN 8 MG/DL (7-18)
[2016-04-07 05:40] LABS: ALT (GPT) 6 U/L (12-78); AST (GOT) 6 U/L (15-37); GLOMERULAR FILTRATION RATE 153 ML/MIN (>89)
[2016-04-07 05:41] LABS: TOTAL BILIRUBIN ADULT 0.4 MG/DL (0.2-1.0)
[2016-04-07 05:43] LABS: ALKALINE PHOSPHATASE 46 U/L (45-117)
--- NOTE | 2016-04-07 08:11 | HHI.PR ---
Subjective History of Present Illness Patient still have headache and neck pain and stiffness.. S/P MRI of cervical spine shows mild spinal canal stenosis d/w SHEKHAR Damico Review of Systems Neurologic Neurologic: Headache Vitals/Results Intake & Output 04/06/16 04/06/16 04/07/16 15:00 23:00 07:00 Intake Total 4185 ml 640 ml 1680 ml Output Total 250 ml Balance 4185 ml 390 ml 1680 ml Intake Oral 640 ml 680 ml IV Total 4185 ml 1000 ml Output Urine Total 250 ml # Voids 2 3 # Bowel Movements 2 0 Vital Signs Vital Signs Date Time Temp Pulse Resp B/P Pulse Ox O2 Delivery O2 Flow Rate FiO2 04/07/16 04:00 98.3 80 20 142/95 96 04/07/16 01:11 20 04/07/16 00:00 98.4 71 20 151/94 94 04/06/16 21:00 87 04/06/16 20:00 99.6 85 16 156/92 97 04/06/16 16:00 98.3 81 20 153/89 96 04/06/16 12:00 98.1 68 18 155/81 97 CBC/BMP: 04/07/16 0445 04/07/16 0445 Lab Results Laboratory Tests Test 04/07/16 04:45 White Blood Count 9.9 TH/MM3 Red Blood Count 4.14 MIL/MM3 Hemoglobin 12.9 GM/DL Hematocrit 38.7 % Mean Corpuscular Volume 93.4 FL Mean Corpuscular Hemoglobin 31.2 PG Mean Corpuscular Hemoglobin 33.4 % Concent Red Cell Distribution Width 12.3 % Platelet Count 297 TH/MM3 Mean Platelet Volume 7.4 FL Neutrophils (%) (Auto) 77.2 % Lymphocytes (%) (Auto) 9.7 % Monocytes (%) (Auto) 12.3 % Eosinophils (%) (Auto) 0.6 % Basophils (%) (Auto) 0.2 % Neutrophils # (Auto) 7.6 TH/MM3 Lymphocytes # (Auto) 1.0 TH/MM3 Monocytes # (Auto) 1.2 TH/MM3 Eosinophils # (Auto) 0.1 TH/MM3 Basophils # (Auto) 0.0 TH/MM3 CBC Comment DIFF FINAL Differential Comment Sodium Level 138 MEQ/L Potassium Level 3.5 MEQ/L Chloride Level 102 MEQ/L Carbon Dioxide Level 28.0 MEQ/L Anion Gap 8 MEQ/L Blood Urea Nitrogen 8 MG/DL Creatinine 0.53 MG/DL Estimat Glomerular Filtration 153 ML/MIN Rate Random Glucose 103 MG/DL Calcium Level 8.3 MG/DL Total Bilirubin 0.4 MG/DL Aspartate Amino Transf 6 U/L (AST/SGOT) Alanine Aminotransferase 6 U/L (ALT/SGPT) Alkaline Phosphatase 46 U/L Total Protein 6.7 GM/DL Albumin 2.6 GM/DL Physical Exam General General Appearance: No Acute Distress, Comfortable Eyes Eye Exam: Pupils Equal, Pupils Reactive, Sclera White, Extraocular Movement Intact Throat Throat Exam: Oral Mucosa [place] & Moist, Oral Pharynx Normal Neck Neck Exam: Neck Supple, Trachea Midline Pulmonary Resp Exam: Clear Bilaterally, Breath Sounds Equal, No Distress Cardiology CV Exam: Regular, Normal Sinus Rhythm Gastrointestinal/Abdomen GI Exam: Soft, Non-Tender, Bowel Sounds Present Musculoskeletal MS Exam: Normal Tone Integumentary Skin Exam: Clear, Warm, Dry, Intact Extremeties Extremities Exam: No Edema Neurologic Neuro Exam: Alert, Awake, Oriented, Speech Clear, Moving All Extremities, No Focal Deficits VTE Prophylaxis VTE Prophylaxis Device: SCDs PUD Prophylasis PUD Prophylaxis: Protonix Assessment/Plan Assessment/Plan ASSESSMENT/PLAN 1. This is a 70-year-old male who came to the ER diagnosed with severe neck pain with decreased range of motion and neck stiffness with headache, rule out meningitis. The patient had a CSF analysis done that shows the protein of 54, glucose 72. The patient is on Rocephin two grams IV [id number] and also acyclovir 700 mg q8-hour also on Dilaudid for headache. Infectious disease input noted. S/P MRI of cervical spine shows mild spinal canal stenosis Further recommendation per infectious disease, 2. History of hypertension, blood pressure is high. on home blood pressure medicine. on clonidine 0.1 mg q6h p.r.n. if blood pressure is above 170/90. 3. History of kidney stones. 4. DVT prophylaxis, SCD. 5. GI prophylaxis, Protonix 40 mg p.o. daily. 6. We are going to manage the patient on a daily basis and make recommendations on a daily basis. Discussed Condition with: Patient Puneet Mandel MD Apr 07, 2016 08:11
[2016-04-07] MEDS: METOPROLOL TARTRATE 25 MG TAB PO SCH ×2 (08:18→21:14)
[2016-04-07] MEDS: ENALAPRIL MALEATE 5 MG TAB PO SCH (08:18)
[2016-04-07] MEDS: PANTOPRAZOLE SOD 40 MG DELAYED RELEASE TAB PO SCH (08:18)
[2016-04-07] MEDS: SODIUM CHLORIDE 0.9% FLUSH 5 ML FLUSH FLUSH SCH ×2 (08:19→21:00)
--- NOTE | 2016-04-07 18:51 | MB ---
cc: FERNANDO LANGFORD MD DATE OF CONSULTATION: 04/07/2016. REASON FOR CONSULTATION: Ventricular tachycardia. HISTORY OF PRESENT ILLNESS: Mr. Moreno is a 70-year-old man who was last seen by partner, Dr. Rosario, in December of 2014. He has not followed up in the office since. The patient at that time did have a nuclear stress test which was not ischemic and did show an inferior infarct with an ejection fraction of 40%. The patient has remained asymptomatic from a cardiovascular perspective. He presented to the hospital with complaints of a headache. While on the telemetry, the patient was noted to have a 60 beat run of ventricular tachycardia and cardiology was subsequently consulted. Again, the patient remained asymptomatic from a cardiac perspective. PAST MEDICAL HISTORY: Past medical history significant for: 1. Ischemic cardiomyopathy. 2. Tremor. 3. Hypertension. 4. Renal calculi. OUTPATIENT MEDICATIONS: 1. Vasotec. 2. Toprol. ALLERGIES: NO KNOWN DRUG ALLERGIES. SOCIAL HISTORY: The patient does not drink or smoke. He is a retired teacher. FAMILY HISTORY: Noncontributory. REVIEW OF SYSTEMS: The patient did present for headache. Other than this, except for what is mentioned in the history of present illness, all twelve systems are negative. PHYSICAL EXAMINATION: VITAL SIGNS: On physical exam, vital signs are 98.0, 84, 18, 155/98. GENERAL: In general, he is a well-appearing man who is in no apparent distress. NECK: The neck is free from jugular venous distention. LUNGS: The lungs are bilaterally clear to auscultation. CARDIOVASCULAR: On cardiovascular examination, he has a normal S1 and S2. I do not appreciate any murmurs, rubs or gallops. ABDOMEN: The abdomen is soft. EXTREMITIES: The extremities are free from edema. LABORATORY FINDINGS: Significant for hemoglobin of 12.9. His white count is 9.9. CARDIOLOGY STUDIES: Telemetry does show a six-beat run of ventricular tachycardia. IMPRESSIONS: 1. A six-beat run of ventricular tachycardia - the patient does have a history of an ischemic cardiomyopathy and now has had an asymptomatic run of ventricular tachycardia while he is hospitalized and is mildly anemic. At this point, I would simply increase his metoprolol to 25 milligrams twice a day. If he remains hypertensive, this of course can be increased as appropriate. I do not feel we need any further evaluation as his stress test was approximately 14 months ago. 2. Hypertension - as above. 3. Ischemic cardiomyopathy - the patient is currently on both beta joana and CORRINE inhibitor. I will be available on a PRN basis. It is reasonable for him to be discharged from a CV perspective. Wyatt Barnes/SHELLI /5:04 PM /6:43 PM
[2016-04-08] VITALS: BP 148/90; PULSE 77; RESP 20; TEMP 96.3; O2SAT 96
[2016-04-08] MEDS: SODIUM CHLOR 0.9% 1000 ML INJ 1,000 ML IV SCH ×5 (00:23→16:48)
[2016-04-08] MEDS: ACETAMINOPHEN/HYDROcodone 325 MG/5 MG TAB PO PRN ×5 (01:20→20:39)
[2016-04-08] MEDS: cefTRIAXone INJ 2,000 MG in SODIUM CHLORIDE 0.9% INJ 100 ML IV SCH ×2 (01:21→10:50)
[2016-04-08 04:00] VITALS: BP 154/90; PULSE 78; RESP 20; TEMP 98.6; O2SAT 97
[2016-04-08 06:39] LABS: AUTOMATED NEUTROPHIL # 8.1 TH/MM3 (1.8-7.7); BASOPHIL % 0.2 % (0.0-2.0); EOSINOPHIL % 0.4 % (0.0-4.0); HEMATOCRIT 38.1 % (39.0-51.0); HEMO FLAGS DIFF FINAL; LYMPH % 8.9 % (9.0-44.0); MEAN CELL VOLUME 93.2 FL (80.0-100.0); MEAN CORPUSCULAR HEMOGLOBIN 31.9 PG (27.0-34.0); MEAN CORPUSCULAR HGB CONC 34.3 % (32.0-36.0); MONO % 15.4 % (0.0-8.0); NEUT % 75.1 % (16.0-70.0); PLATELET COUNT 290 TH/MM3 (150-450); RED BLOOD COUNT 4.09 MIL/MM3 (4.50-5.90); RED CELL DISTRIBUTION WIDTH 12.5 % (11.6-17.2); WHITE BLOOD COUNT 10.8 TH/MM3 (4.0-11.0)
--- NOTE | 2016-04-08 06:54 | HHI.PR ---
Subjective History of Present Illness Patient still have headache and neck pain and stiffness.. S/P MRI of cervical spine shows mild spinal canal stenosis off Acyclovir on Rocephin IV Per ID. Have episode of non sustained Venticular tachycardia, magnesium level was normal. cardiology input noted Increased metoprolol to 25 mg PO BID Review of Systems Neurologic Neurologic: Headache Vitals/Results Intake & Output 04/07/16 04/07/16 04/08/16 15:00 23:00 07:00 Intake Total 750 ml 325 ml 60 ml Balance 750 ml 325 ml 60 ml Intake Oral 750 ml 325 ml 60 ml # Voids 3 1 1 # Bowel Movements 1 0 Vital Signs Vital Signs Date Time Temp Pulse Resp B/P Pulse Ox O2 Delivery O2 Flow Rate FiO2 04/08/16 04:00 98.6 78 20 154/90 97 Automatic Cuff 04/08/16 00:00 96.3 77 20 148/90 96 04/07/16 20:00 99.2 86 20 169/96 98 04/07/16 20:00 86 04/07/16 16:00 97.9 93 20 175/96 97 04/07/16 12:00 98.5 79 18 172/93 98 04/07/16 08:00 98.0 84 18 155/98 96 04/07/16 07:00 77 CBC/BMP: 04/08/16 0605 04/07/16 0445 Lab Results Laboratory Tests Test 04/07/16 04/08/16 18:23 06:05 Magnesium Level 2.1 MG/DL White Blood Count 10.8 TH/MM3 Red Blood Count 4.09 MIL/MM3 Hemoglobin 13.1 GM/DL Hematocrit 38.1 % Mean Corpuscular Volume 93.2 FL Mean Corpuscular Hemoglobin 31.9 PG Mean Corpuscular Hemoglobin 34.3 % Concent Red Cell Distribution Width 12.5 % Platelet Count 290 TH/MM3 Mean Platelet Volume 7.6 FL Neutrophils (%) (Auto) 75.1 % Lymphocytes (%) (Auto) 8.9 % Monocytes (%) (Auto) 15.4 % Eosinophils (%) (Auto) 0.4 % Basophils (%) (Auto) 0.2 % Neutrophils # (Auto) 8.1 TH/MM3 Lymphocytes # (Auto) 1.0 TH/MM3 Monocytes # (Auto) 1.7 TH/MM3 Eosinophils # (Auto) 0.0 TH/MM3 Basophils # (Auto) 0.0 TH/MM3 CBC Comment DIFF FINAL Differential Comment Physical Exam General General Appearance: No Acute Distress, Comfortable Eyes Eye Exam: Pupils Equal, Pupils Reactive, Sclera White, Extraocular Movement Intact Throat Throat Exam: Oral Mucosa [place] & Moist, Oral Pharynx Normal Neck Neck Exam: Neck Supple, Trachea Midline Pulmonary Resp Exam: Clear Bilaterally, Breath Sounds Equal, No Distress Cardiology CV Exam: Regular, Normal Sinus Rhythm Gastrointestinal/Abdomen GI Exam: Soft, Non-Tender, Bowel Sounds Present Musculoskeletal MS Exam: Normal Tone Integumentary Skin Exam: Clear, Warm, Dry, Intact Extremeties Extremities Exam: No Edema Neurologic Neuro Exam: Alert, Awake, Oriented, Speech Clear, Moving All Extremities, No Focal Deficits VTE Prophylaxis VTE Prophylaxis Device: SCDs PUD Prophylasis PUD Prophylaxis: Protonix Assessment/Plan Assessment/Plan ASSESSMENT/PLAN 1. This is a 70-year-old male who came to the ER diagnosed with severe neck pain with decreased range of motion and neck stiffness with headache, rule out meningitis. The patient had a CSF analysis done that shows the protein of 54, glucose 72. The patient is on Rocephin two grams IV [id number] also on Dilaudid for headache. Infectious disease input noted. S/P MRI of cervical spine shows mild spinal canal stenosis Further recommendation per infectious disease, 2. History of hypertension, blood pressure is high. on home blood pressure medicine. on clonidine 0.1 mg q6h p.r.n. if blood pressure is above 170/90. 3. History of kidney stones. 4. DVT prophylaxis, SCD. 5. GI prophylaxis, Protonix 40 mg p.o. daily. 6. Episode of non sustained Venticular tachycardia, magnesium level was normal. cardiology input noted Increased metoprolol to 25 mg PO BID We are going to manage the patient on a daily basis and make recommendations on a daily basis. Discussed Condition with: Patient Puneet Mandel MD Apr 08, 2016 06:53
[2016-04-08 06:59] LABS: CHLORIDE 100 MEQ/L (98-107); POTASSIUM 3.5 MEQ/L (3.5-5.1); SODIUM (NA) 137 MEQ/L (136-145)
[2016-04-08 07:06] LABS: ANION GAP 11 MEQ/L (5-15); BICARBONATE 25.9 MEQ/L (21.0-32.0); BLOOD UREA NITROGEN 6 MG/DL (7-18)
[2016-04-08 07:09] LABS: ALT (GPT) 6 U/L (12-78); AST (GOT) 7 U/L (15-37); GLOMERULAR FILTRATION RATE 147 ML/MIN (>89)
[2016-04-08 07:11] LABS: TOTAL BILIRUBIN ADULT 0.6 MG/DL (0.2-1.0)
[2016-04-08 07:12] LABS: ALKALINE PHOSPHATASE 47 U/L (45-117)
[2016-04-08 08:00] VITALS: BP 190/94; PULSE 81; PULSE 85; RESP 18; TEMP 98.1; O2SAT 98
[2016-04-08] MEDS: SODIUM CHLORIDE 0.9% FLUSH 5 ML FLUSH FLUSH SCH ×2 (09:00→20:15)
[2016-04-08] MEDS: PANTOPRAZOLE SOD 40 MG DELAYED RELEASE TAB PO SCH (09:02)
[2016-04-08] MEDS: METOPROLOL TARTRATE 25 MG TAB PO SCH ×2 (09:02→20:38)
[2016-04-08] MEDS: ENALAPRIL MALEATE 5 MG TAB PO SCH (09:04)
[2016-04-08 12:00] VITALS: BP_SYST 158; BP_SYST 190; BP_DIAS 90; BP_DIAS 94; PULSE 85; RESP 18; TEMP 98.1; O2SAT 96; O2SAT 98
[2016-04-08 16:00] VITALS: BP 154/90; PULSE 86; RESP 18; TEMP 98.1; O2SAT 98
[2016-04-08 20:00] VITALS: BP_SYST 160; BP_SYST 168; BP_DIAS 100; BP_DIAS 111; PULSE 84; PULSE 87; RESP 20; TEMP 100; O2SAT 95
--- NOTE | 2016-04-08 23:28 | HHI.IDPN ---
Subjective Subjective Remarks Pt is having low grade temps again up to 100.0 Neck pain resolved he developped new L flank pain debies urinary smx MRI showed soft tissue signal enhancement Antibiotics CFTX Past Medical History remote heavy tobacco 2 ppd, quit 10 yrs ago Allergies: Coded Allergies: No Known Allergies (Unverified , 04/04/16) Objective . Vital Signs Date Time Temp Pulse Resp B/P Pulse Ox O2 Delivery O2 Flow Rate FiO2 04/08/16 20:00 84 04/08/16 20:00 100.0 87 20 168/111 95 160/100 04/08/16 16:00 98.1 86 18 154/90 98 04/08/16 16:00 98.1 86 18 154/90 98 04/08/16 12:00 98.1 85 18 158/90 96 04/08/16 12:00 98.1 85 18 158/90 96 04/08/16 08:00 81 04/08/16 08:00 98.1 85 18 190/94 98 04/08/16 04:00 98.6 78 20 154/90 97 Automatic Cuff 04/08/16 00:00 96.3 77 20 148/90 96 04/07/16 04/07/16 04/08/16 15:00 23:00 07:00 Intake Total 750 ml 325 ml 60 ml Balance 750 ml 325 ml 60 ml Intake Oral 750 ml 325 ml 60 ml # Voids 3 1 1 # Bowel Movements 1 0 . Laboratory Tests Test 04/07/16 04/08/16 04:45 06:05 White Blood Count 9.9 TH/MM3 10.8 TH/MM3 Red Blood Count 4.14 MIL/MM3 4.09 MIL/MM3 Hemoglobin 12.9 GM/DL 13.1 GM/DL Hematocrit 38.7 % 38.1 % Mean Corpuscular Volume 93.4 FL 93.2 FL Mean Corpuscular Hemoglobin 31.2 PG 31.9 PG Mean Corpuscular Hemoglobin 33.4 % 34.3 % Concent Red Cell Distribution Width 12.3 % 12.5 % Platelet Count 297 TH/MM3 290 TH/MM3 Mean Platelet Volume 7.4 FL 7.6 FL Neutrophils (%) (Auto) 77.2 % 75.1 % Lymphocytes (%) (Auto) 9.7 % 8.9 % Monocytes (%) (Auto) 12.3 % 15.4 % Eosinophils (%) (Auto) 0.6 % 0.4 % Basophils (%) (Auto) 0.2 % 0.2 % Neutrophils # (Auto) 7.6 TH/MM3 8.1 TH/MM3 Lymphocytes # (Auto) 1.0 TH/MM3 1.0 TH/MM3 Monocytes # (Auto) 1.2 TH/MM3 1.7 TH/MM3 Eosinophils # (Auto) 0.1 TH/MM3 0.0 TH/MM3 Basophils # (Auto) 0.0 TH/MM3 0.0 TH/MM3 CBC Comment DIFF FINAL DIFF FINAL Differential Comment Laboratory Tests Test 04/07/16 04/07/16 04/08/16 04:45 18:23 06:05 Sodium Level 138 MEQ/L 137 MEQ/L Potassium Level 3.5 MEQ/L 3.5 MEQ/L Chloride Level 102 MEQ/L 100 MEQ/L Carbon Dioxide Level 28.0 MEQ/L 25.9 MEQ/L Anion Gap 8 MEQ/L 11 MEQ/L Blood Urea Nitrogen 8 MG/DL 6 MG/DL Creatinine 0.53 MG/DL 0.55 MG/DL Estimat Glomerular Filtration 153 ML/MIN 147 ML/MIN Rate Random Glucose 103 MG/DL 102 MG/DL Calcium Level 8.3 MG/DL 8.4 MG/DL Total Bilirubin 0.4 MG/DL 0.6 MG/DL Aspartate Amino Transf 6 U/L 7 U/L (AST/SGOT) Alanine Aminotransferase 6 U/L 6 U/L (ALT/SGPT) Alkaline Phosphatase 46 U/L 47 U/L Total Protein 6.7 GM/DL 7.0 GM/DL Albumin 2.6 GM/DL 2.6 GM/DL Magnesium Level 2.1 MG/DL Imaging Last Impressions Cervical Spine MRI 04/06/16 0000 Signed Impressions: Service Date/Time: Wednesday, April 06, 2016 15:23 - CONCLUSION: Nonspecific soft tissue signal enhancement as described above. Degenerative changes in the cervical spine with mild cervical spinal stenosis. Jaret Patel MD FACR Head CT 04/04/1656 Signed Impressions: Service Date/Time: Monday, April 04, 2016 10:22 - CONCLUSION: 1. No acute intracranial abnormality. 2. Mild mucosal thickening within the right maxillary sinus. Akbar Singh MD Cervical Spine CT 04/04/1656 Signed Impressions: Service Date/Time: Monday, April 04, 2016 10:22 - CONCLUSION: 1. Degenerative changes without fracture. Jaret Patel MD FACR Lumbar Puncture Fluoroscopy 04/04/16 0000 Signed Impressions: Service Date/Time: Friday, March 01, 2002 23:34 - CONCLUSION: Uncomplicated fluoroscopically guided lumbar puncture. Kvng Lyles MD Physical Exam GENERAL: This is a well-nourished, well-developed patient, in no apparent distress. Stigmata of substatial weight loss present SKIN: No rashes, ecchymoses or lesions. Cool and dry. EYES: Pupils equal round and reactive. Extraocular motions intact. No scleral icterus. No injection or drainage. NECK: Trachea midline. No JVD or lymphadenopathy. Supple, very tender at the nape of his neck no swelling or redness , Nearly full ROM in the neck minimal pain Tender to palpation more so on the left side CARDIOVASCULAR: Regular rate and rhythm without murmurs, gallops, or rubs. RESPIRATORY: Clear to auscultation. Breath sounds equal bilaterally. No wheezes , rales, or rhonchi. GASTROINTESTINAL: Abdomen soft, non-tender, nondistended. No hepato-splenomegaly , or palpable masses. No guarding. MUSCULOSKELETAL: Extremities without clubbing, cyanosis, or edema. NEUROLOGICAL: Awake and alert. Cranial nerves II through XII intact. Motor and sensory grossly within normal limits. Five out of 5 muscle strength in all muscle groups. Normal speech. : non distended bladder + CVA tenderness L side Assessment & Plan Remarks (1) Cephalgia, improved on empriric abx CSF not favouring menigitis continue rocephin MRI with soft tissue enchancement ? myositis New L flank pain and new fever dc acyclovir once neg HSV back fu P LP studies US kidneys (h/o renal stones) UA, C+S repeat BC Akanksha Daniels MD Apr 08, 2016 23:28
[2016-04-09] MEDS: cefTRIAXone INJ 2,000 MG in SODIUM CHLORIDE 0.9% INJ 100 ML IV SCH ×2 (00:06→11:33)
[2016-04-09] MEDS: cloNIDine HCL 0.1 MG TAB PO PRN (00:07)
[2016-04-09] MEDS: ACETAMINOPHEN/HYDROcodone 325 MG/5 MG TAB PO PRN ×5 (01:03→20:22)
[2016-04-09 03:44] LABS: BLOOD, URINE SMALL (NEG); GLUCOSE,URINE NEG (NEG); KETONE, URINE 15 mg/dL (NEG); NITRITE,URINE NEG (NEG)
[2016-04-09 03:47] LABS: URINE COLOR YELLOW (YELLW/STRAW)
[2016-04-09 03:48] LABS: COMMENT (UR) CULT NOT INDICATED; CULTURE IF INDICATED CULT NOT INDICATED; SQUAMOUS EPITHELIAL CELL URINE 0-5 /hpf (0-5); WBC, URINE 0-2 /hpf (0-5)
[2016-04-09] MEDS: SODIUM CHLOR 0.9% 1000 ML INJ 1,000 ML IV SCH ×2 (04:07→14:07)
[2016-04-09 04:29] VITALS: BP 154/97; PULSE 79; RESP 22; TEMP 99.2; O2SAT 97
[2016-04-09 08:00] VITALS: BP 153/97; PULSE 80; RESP 20; TEMP 100.1; O2SAT 94
--- NOTE | 2016-04-09 08:45 | HHI.PR ---
Subjective History of Present Illness Patient headache and neck pain and stiffness..better d/w RN Yo Knight at bed side. Review of Systems Neurologic Neurologic: Headache Vitals/Results Intake & Output 04/08/16 04/08/16 04/09/16 15:00 23:00 07:00 Intake Total 1000 ml Output Total 100 ml 800 ml Balance -100 ml 1000 ml -800 ml IV Total 1000 ml Output Urine Total 100 ml 800 ml Vital Signs Vital Signs Date Time Temp Pulse Resp B/P Pulse Ox O2 Delivery O2 Flow Rate FiO2 04/09/16 04:29 99.2 79 22 154/97 97 04/08/16 20:00 84 04/08/16 20:00 100.0 87 20 168/111 95 160/100 04/08/16 16:00 98.1 86 18 154/90 98 04/08/16 16:00 98.1 86 18 154/90 98 04/08/16 12:00 98.1 85 18 158/90 96 04/08/16 12:00 98.1 85 18 158/90 96 CBC/BMP: 04/08/16 0605 04/09/16 0720 Lab Results Laboratory Tests Test 04/09/16 04/09/16 03:36 07:20 Urine Color YELLOW Urine Turbidity CLEAR Urine pH 6.0 Urine Specific [place] 1.015 Urine Protein 30 mg/dL Urine Glucose (UA) NEG mg/dL Urine Ketones 15 mg/dL Urine Occult Blood SMALL Urine Nitrite NEG Urine Bilirubin NEG Urine Leukocyte Esterase NEG Urine RBC 10-14 /hpf Urine WBC 0-2 /hpf Urine Squamous Epithelial 0-5 /hpf Cells Urine Bacteria NONE /hpf Microscopic Urinalysis Comment CULT NOT INDICATED Creatinine 0.52 MG/DL Estimat Glomerular Filtration 157 ML/MIN Rate Microbiology Microbiology 04/09/16 Aerobic Blood Culture, Received Pending 04/09/16 Anaerobic Blood Culture, Received Pending 04/09/16 Aerobic Blood Culture, Received Pending 04/09/16 Anaerobic Blood Culture, Received Pending Physical Exam General General Appearance: No Acute Distress, Comfortable Eyes Eye Exam: Pupils Equal, Pupils Reactive, Sclera White, Extraocular Movement Intact Throat Throat Exam: Oral Mucosa [place] & Moist, Oral Pharynx Normal Neck Neck Exam: Neck Supple, Trachea Midline Pulmonary Resp Exam: Clear Bilaterally, Breath Sounds Equal, No Distress Cardiology CV Exam: Regular, Normal Sinus Rhythm Gastrointestinal/Abdomen GI Exam: Soft, Non-Tender, Bowel Sounds Present Musculoskeletal MS Exam: Normal Tone Integumentary Skin Exam: Clear, Warm, Dry, Intact Extremeties Extremities Exam: No Edema Neurologic Neuro Exam: Alert, Awake, Oriented, Speech Clear, Moving All Extremities, No Focal Deficits VTE Prophylaxis VTE Prophylaxis Device: SCDs PUD Prophylasis PUD Prophylaxis: Protonix Assessment/Plan Assessment/Plan ASSESSMENT/PLAN 1. This is a 70-year-old male who came to the ER diagnosed with severe neck pain with decreased range of motion and neck stiffness with headache, rule out meningitis. The patient had a CSF analysis done that shows the protein of 54, glucose 72. The patient is on Rocephin two grams IV [id number] also on Dilaudid for headache. Infectious disease input noted. S/P MRI of cervical spine shows mild spinal canal stenosis Further recommendation per infectious disease, 2. History of hypertension, blood pressure is high. on home blood pressure medicine. on clonidine 0.1 mg q6h p.r.n. if blood pressure is above 170/90. 3. History of kidney stones. 4. DVT prophylaxis, SCD. 5. GI prophylaxis, Protonix 40 mg p.o. daily. 6. Episode of non sustained Venticular tachycardia, magnesium level was normal. cardiology input noted Increased metoprolol to 25 mg PO BID We are going to manage the patient on a daily basis and make recommendations on a daily basis. Discussed Condition with: Patient Puneet Mandel MD Apr 09, 2016 08:45 Puneet Mandel MD Apr 09, 2016 08:45
[2016-04-09] MEDS: PANTOPRAZOLE SOD 40 MG DELAYED RELEASE TAB PO SCH (09:04)
[2016-04-09] MEDS: METOPROLOL TARTRATE 25 MG TAB PO SCH ×2 (09:04→20:21)
[2016-04-09] MEDS: ENALAPRIL MALEATE 5 MG TAB PO SCH (09:04)
[2016-04-09] MEDS: SODIUM CHLORIDE 0.9% FLUSH 5 ML FLUSH FLUSH SCH ×2 (09:05→20:24)
--- NOTE | 2016-04-09 10:58 | RADHPO ---
EXAM DATE/TIME: 04/09/2016 10:37 [facility] COMPARISON: No previous studies available for comparison. INDICATIONS : Left flank pain. MEDICAL HISTORY : Hypertension. Myocardial infarction. Kidney stones. Migraine. SURGICAL HISTORY : Hernia repair. Rotator cuff repair. ENCOUNTER: Initial ACUITY: 3 days PAIN SCORE: 4/10 LOCATION: Bilateral flank MEASUREMENTS: RIGHT KIDNEY: 11.5 x 5.2 x 5.4 cm LEFT KIDNEY: 10.8 x 6.6 x 5.1 cm FINDINGS: RIGHT KIDNEY: Renal cortex is normal in thickness and echotexture. No hydronephrosis, stone, or mass. LEFT KIDNEY: Renal cortex is normal in thickness and echotexture. No hydronephrosis, stone, or mass. BLADDER: Within normal limits given the degree of distension. CONCLUSION: Normal renal sonogram. Dae Paredes MD on April 09, 2016 at 10:54 Board Certified Radiologist. This report was verified electronically.
[2016-04-09 12:00] VITALS: BP 141/92; PULSE 65; RESP 20; TEMP 98.2; O2SAT 94
[2016-04-09 16:00] VITALS: BP 156/89; PULSE 86; RESP 20; TEMP 98.4; O2SAT 94
[2016-04-09 17:56] LABS: LYME DISEASE 18KD IGG BAND NON-REACTIVE (()); LYME DISEASE 23 IGG BAND NON-REACTIVE (()); LYME DISEASE 23KD IGM BAND NON-REACTIVE (()); LYME DISEASE 28KD IGG BAND NON-REACTIVE (()); LYME DISEASE 30KD IGG BAND NON-REACTIVE (()); LYME DISEASE 39 KD IGG BAND NON-REACTIVE (()); LYME DISEASE 39KD IGM BAND NON-REACTIVE (()); LYME DISEASE 41KD IGG BAND NON-REACTIVE (()); LYME DISEASE 41KD IGM BAND NON-REACTIVE (()); LYME DISEASE 45KD IGG BAND NON-REACTIVE (()); LYME DISEASE 58KD IGG BAND NON-REACTIVE (()); LYME DISEASE 66KD IGG BAND NON-REACTIVE (()); LYME DISEASE 93KD IGG BAND NON-REACTIVE (()); LYME DISEASE IGM WB NEGATIVE (())
[2016-04-09 20:00] VITALS: BP 149/87; PULSE 78; PULSE 83; RESP 18; TEMP 98.7; O2SAT 96
[2016-04-10] VITALS (7 sets, daily range): BP systolic 150–166; BP diastolic 90–104; PULSE 71–90; RESP 18–20; TEMP 97.4–98.8; O2SAT 92–97
[2016-04-10] MEDS: SODIUM CHLOR 0.9% 1000 ML INJ 1,000 ML IV SCH ×3 (00:07→20:32)
[2016-04-10] MEDS: ACETAMINOPHEN/HYDROcodone 325 MG/5 MG TAB PO PRN ×6 (00:38→21:16)
[2016-04-10] MEDS: cefTRIAXone INJ 2,000 MG in SODIUM CHLORIDE 0.9% INJ 100 ML IV SCH ×2 (00:38→12:05)
[2016-04-10] MEDS: METOPROLOL TARTRATE 25 MG TAB PO SCH ×2 (07:44→20:30)
[2016-04-10] MEDS: PANTOPRAZOLE SOD 40 MG DELAYED RELEASE TAB PO SCH (07:44)
[2016-04-10] MEDS: ENALAPRIL MALEATE 5 MG TAB PO SCH (07:45)
[2016-04-10] MEDS: SODIUM CHLORIDE 0.9% FLUSH 5 ML FLUSH FLUSH SCH ×2 (09:00→20:29)
--- NOTE | 2016-04-10 09:07 | HHI.PR ---
Subjective History of Present Illness Patient headache and neck pain and stiffness..better d/w RN Stacia at bed side. Repeat blood culture done negative so far DC plan when ok with ID. Review of Systems Neurologic Neurologic: Headache Vitals/Results Intake & Output 04/09/16 04/09/16 04/10/16 15:00 23:00 07:00 Intake Total 1000 ml 820 ml 840 ml Balance 1000 ml 820 ml 840 ml Intake Oral 1000 ml 820 ml 840 ml # Voids 5 3 5 # Bowel Movements 0 0 0 Vital Signs Vital Signs Date Time Temp Pulse Resp B/P Pulse Ox O2 Delivery O2 Flow Rate FiO2 04/10/16 08:27 80 04/10/16 04:00 97.4 74 18 155/104 95 04/10/16 00:00 98.2 76 18 157/99 96 04/09/16 20:00 78 04/09/16 20:00 98.7 83 18 149/87 96 04/09/16 16:00 98.4 86 20 156/89 94 04/09/16 12:00 98.2 65 20 141/92 94 CBC/BMP: 04/08/16 0605 04/09/16 0720 Physical Exam General General Appearance: No Acute Distress, Comfortable Eyes Eye Exam: Pupils Equal, Pupils Reactive, Sclera White, Extraocular Movement Intact Throat Throat Exam: Oral Mucosa [place] & Moist, Oral Pharynx Normal Neck Neck Exam: Neck Supple, Trachea Midline Pulmonary Resp Exam: Clear Bilaterally, Breath Sounds Equal, No Distress Cardiology CV Exam: Regular, Normal Sinus Rhythm Gastrointestinal/Abdomen GI Exam: Soft, Non-Tender, Bowel Sounds Present Musculoskeletal MS Exam: Normal Tone Integumentary Skin Exam: Clear, Warm, Dry, Intact Extremeties Extremities Exam: No Edema Neurologic Neuro Exam: Alert, Awake, Oriented, Speech Clear, Moving All Extremities, No Focal Deficits VTE Prophylaxis VTE Prophylaxis Device: SCDs PUD Prophylasis PUD Prophylaxis: Protonix Assessment/Plan Assessment/Plan ASSESSMENT/PLAN 1. This is a 70-year-old male who came to the ER diagnosed with severe neck pain with decreased range of motion and neck stiffness with headache, rule out meningitis. The patient had a CSF analysis done that shows the protein of 54, glucose 72. The patient is on Rocephin two grams IV [id number] also on Dilaudid for headache. Infectious disease input noted. S/P MRI of cervical spine shows mild spinal canal stenosis..Repeat blood culture done negative so far Further recommendation per infectious disease, 2. History of hypertension, blood pressure is high. on home blood pressure medicine. on clonidine 0.1 mg q6h p.r.n. if blood pressure is above 170/90. 3. History of kidney stones. 4. DVT prophylaxis, SCD. 5. GI prophylaxis, Protonix 40 mg p.o. daily. 6. Episode of non sustained Venticular tachycardia, magnesium level was normal. cardiology input noted Increased metoprolol to 25 mg PO BID We are going to manage the patient on a daily basis and make recommendations on a daily basis. Discussed Condition with: Patient Puneet Mandel MD Apr 10, 2016 09:07
[2016-04-11] VITALS (8 sets, daily range): BP systolic 120–163; BP diastolic 70–98; PULSE 68–85; RESP 15–20; TEMP 96.4–99.8; O2SAT 95–98
[2016-04-11] MEDS: SODIUM CHLORIDE 0.9% FLUSH 5 ML FLUSH FLUSH PRN ×2 (00:18→05:58)
[2016-04-11] MEDS: cefTRIAXone INJ 2,000 MG in SODIUM CHLORIDE 0.9% INJ 100 ML IV SCH ×3 (00:18→23:52)
[2016-04-11] MEDS: ACETAMINOPHEN/HYDROcodone 325 MG/5 MG TAB PO PRN ×6 (01:35→23:53)
[2016-04-11] MEDS: SODIUM CHLOR 0.9% 1000 ML INJ 1,000 ML IV SCH ×3 (05:58→23:52)
[2016-04-11 06:50] LABS: AUTOMATED NEUTROPHIL # 8.6 TH/MM3 (1.8-7.7); BASOPHIL % 0.2 % (0.0-2.0); EOSINOPHIL # 0.1 TH/MM3 (0-0.4); EOSINOPHIL % 0.8 % (0.0-4.0); HEMATOCRIT 36.6 % (39.0-51.0); HEMO FLAGS DIFF FINAL; LYMPH % 10.7 % (9.0-44.0); LYMPHOCYTE # 1.2 TH/MM3 (1.0-4.8); MEAN CELL VOLUME 95.5 FL (80.0-100.0); MEAN CORPUSCULAR HEMOGLOBIN 31.9 PG (27.0-34.0); MEAN CORPUSCULAR HGB CONC 33.4 % (32.0-36.0); MONO % 14.3 % (0.0-8.0); PLATELET COUNT 315 TH/MM3 (150-450); RED BLOOD COUNT 3.83 MIL/MM3 (4.50-5.90); WHITE BLOOD COUNT 11.6 TH/MM3 (4.0-11.0)
[2016-04-11 06:58] LABS: CHLORIDE 98 MEQ/L (98-107); POTASSIUM 3.6 MEQ/L (3.5-5.1); SODIUM (NA) 139 MEQ/L (136-145)
[2016-04-11 07:09] LABS: ANION GAP 9 MEQ/L (5-15); BICARBONATE 31.6 MEQ/L (21.0-32.0); BLOOD UREA NITROGEN 7 MG/DL (7-18)
[2016-04-11 07:11] LABS: ALT (GPT) 10 U/L (12-78); AST (GOT) 10 U/L (15-37)
[2016-04-11 07:12] LABS: GLOMERULAR FILTRATION RATE 138 ML/MIN (>89); TOTAL BILIRUBIN ADULT 0.4 MG/DL (0.2-1.0)
[2016-04-11 07:13] LABS: ALKALINE PHOSPHATASE 51 U/L (45-117)
--- NOTE | 2016-04-11 08:16 | HHI.PR ---
Subjective History of Present Illness Patient headache and neck pain and stiffness..better d/w RN Stacia at bed side. Repeat blood culture done negative so far DC plan when ok with ID. Review of Systems Neurologic Neurologic: Headache Vitals/Results Intake & Output 04/10/16 04/10/16 04/11/16 15:00 23:00 07:00 Intake Total 1505 ml 1217 ml Output Total 750 ml Balance 1505 ml 467 ml Intake Oral 750 ml 400 ml IV Total 755 ml 817 ml Output Urine Total 750 ml # Voids 3 2 Vital Signs Vital Signs Date Time Temp Pulse Resp B/P Pulse Ox O2 Delivery O2 Flow Rate FiO2 04/11/16 04:00 98.6 77 18 156/98 98 04/11/16 00:00 96.7 76 18 161/94 97 04/10/16 20:00 98.3 90 18 152/97 97 04/10/16 20:00 82 04/10/16 18:20 20 04/10/16 16:00 97.9 89 18 166/95 94 04/10/16 12:00 98.8 82 20 162/92 92 04/10/16 08:27 80 CBC/BMP: 04/11/16 0526 04/11/16 0526 Lab Results Laboratory Tests Test 04/11/16 05:26 White Blood Count 11.6 TH/MM3 Red Blood Count 3.83 MIL/MM3 Hemoglobin 12.2 GM/DL Hematocrit 36.6 % Mean Corpuscular Volume 95.5 FL Mean Corpuscular Hemoglobin 31.9 PG Mean Corpuscular Hemoglobin 33.4 % Concent Red Cell Distribution Width 13.0 % Platelet Count 315 TH/MM3 Mean Platelet Volume 7.8 FL Neutrophils (%) (Auto) 74.0 % Lymphocytes (%) (Auto) 10.7 % Monocytes (%) (Auto) 14.3 % Eosinophils (%) (Auto) 0.8 % Basophils (%) (Auto) 0.2 % Neutrophils # (Auto) 8.6 TH/MM3 Lymphocytes # (Auto) 1.2 TH/MM3 Monocytes # (Auto) 1.7 TH/MM3 Eosinophils # (Auto) 0.1 TH/MM3 Basophils # (Auto) 0.0 TH/MM3 CBC Comment DIFF FINAL Differential Comment Sodium Level 139 MEQ/L Potassium Level 3.6 MEQ/L Chloride Level 98 MEQ/L Carbon Dioxide Level 31.6 MEQ/L Anion Gap 9 MEQ/L Blood Urea Nitrogen 7 MG/DL Creatinine 0.58 MG/DL Estimat Glomerular Filtration 138 ML/MIN Rate Random Glucose 98 MG/DL Calcium Level 9.0 MG/DL Total Bilirubin 0.4 MG/DL Aspartate Amino Transf 10 U/L (AST/SGOT) Alanine Aminotransferase 10 U/L (ALT/SGPT) Alkaline Phosphatase 51 U/L Total Protein 6.5 GM/DL Albumin 2.2 GM/DL Physical Exam General General Appearance: No Acute Distress, Comfortable Eyes Eye Exam: Pupils Equal, Pupils Reactive, Sclera White, Extraocular Movement Intact Throat Throat Exam: Oral Mucosa [place] & Moist, Oral Pharynx Normal Neck Neck Exam: Neck Supple, Trachea Midline Pulmonary Resp Exam: Clear Bilaterally, Breath Sounds Equal, No Distress Cardiology CV Exam: Regular, Normal Sinus Rhythm Gastrointestinal/Abdomen GI Exam: Soft, Non-Tender, Bowel Sounds Present Musculoskeletal MS Exam: Normal Tone Integumentary Skin Exam: Clear, Warm, Dry, Intact Extremeties Extremities Exam: No Edema Neurologic Neuro Exam: Alert, Awake, Oriented, Speech Clear, Moving All Extremities, No Focal Deficits VTE Prophylaxis VTE Prophylaxis Device: SCDs PUD Prophylasis PUD Prophylaxis: Protonix Assessment/Plan Assessment/Plan ASSESSMENT/PLAN 1. This is a 70-year-old male who came to the ER diagnosed with severe neck pain with decreased range of motion and neck stiffness with headache, rule out meningitis. The patient had a CSF analysis done that shows the protein of 54, glucose 72. The patient is on Rocephin two grams IV [id number] also on Dilaudid for headache. Infectious disease input noted. S/P MRI of cervical spine shows mild spinal canal stenosis..Repeat blood culture done negative so far Further recommendation per infectious disease, 2. History of hypertension, blood pressure is high. on home blood pressure medicine. on clonidine 0.1 mg q6h p.r.n. if blood pressure is above 170/90. 3. History of kidney stones. 4. DVT prophylaxis, SCD. 5. GI prophylaxis, Protonix 40 mg p.o. daily. 6. Episode of non sustained Venticular tachycardia, magnesium level was normal. cardiology input noted Increased metoprolol to 25 mg PO BID We are going to manage the patient on a daily basis and make recommendations on a daily basis. DC Plan tomorrow if ok with ID. Discussed Condition with: Patient Puneet Mandel MD Apr 11, 2016 08:16
[2016-04-11] MEDS ORDERED: METO25TA3 PO (08:20)
[2016-04-11] MEDS: METOPROLOL TARTRATE 25 MG TAB PO SCH ×2 (08:57→19:53)
[2016-04-11] MEDS: SODIUM CHLORIDE 0.9% FLUSH 5 ML FLUSH FLUSH SCH ×2 (08:57→19:54)
[2016-04-11] MEDS: ENALAPRIL MALEATE 5 MG TAB PO SCH (08:57)
[2016-04-11] MEDS: PANTOPRAZOLE SOD 40 MG DELAYED RELEASE TAB PO SCH (08:57)
--- NOTE | 2016-04-11 19:18 | HHI.IDPN ---
Subjective Subjective Remarks Afebrile x 3 days Nech pain improved by 80% - in pt's words No other co Antibiotics CFTX Past Medical History remote heavy tobacco 2 ppd, quit 10 yrs ago Allergies: Coded Allergies: No Known Allergies (Unverified , 04/04/16) Objective . Vital Signs Date Time Temp Pulse Resp B/P Pulse Ox O2 Delivery O2 Flow Rate FiO2 04/11/16 17:40 98.3 75 16 120/92 95 04/11/16 14:10 96.4 81 16 160/70 97 04/11/16 10:03 20 04/11/16 09:54 98.5 68 15 158/94 97 04/11/16 08:00 80 04/11/16 04:00 98.6 77 18 156/98 98 04/11/16 00:00 96.7 76 18 161/94 97 04/10/16 20:00 98.3 90 18 152/97 97 04/10/16 20:00 82 04/10/16 04/10/16 04/11/16 15:00 23:00 07:00 Intake Total 1505 ml 1217 ml Output Total 750 ml Balance 1505 ml 467 ml Intake Oral 750 ml 400 ml IV Total 755 ml 817 ml Output Urine Total 750 ml # Voids 3 2 . Laboratory Tests Test 04/11/16 05:26 White Blood Count 11.6 TH/MM3 Red Blood Count 3.83 MIL/MM3 Hemoglobin 12.2 GM/DL Hematocrit 36.6 % Mean Corpuscular Volume 95.5 FL Mean Corpuscular Hemoglobin 31.9 PG Mean Corpuscular Hemoglobin 33.4 % Concent Red Cell Distribution Width 13.0 % Platelet Count 315 TH/MM3 Mean Platelet Volume 7.8 FL Neutrophils (%) (Auto) 74.0 % Lymphocytes (%) (Auto) 10.7 % Monocytes (%) (Auto) 14.3 % Eosinophils (%) (Auto) 0.8 % Basophils (%) (Auto) 0.2 % Neutrophils # (Auto) 8.6 TH/MM3 Lymphocytes # (Auto) 1.2 TH/MM3 Monocytes # (Auto) 1.7 TH/MM3 Eosinophils # (Auto) 0.1 TH/MM3 Basophils # (Auto) 0.0 TH/MM3 CBC Comment DIFF FINAL Differential Comment Laboratory Tests Test 04/11/16 05:26 Sodium Level 139 MEQ/L Potassium Level 3.6 MEQ/L Chloride Level 98 MEQ/L Carbon Dioxide Level 31.6 MEQ/L Anion Gap 9 MEQ/L Blood Urea Nitrogen 7 MG/DL Creatinine 0.58 MG/DL Estimat Glomerular Filtration 138 ML/MIN Rate Random Glucose 98 MG/DL Calcium Level 9.0 MG/DL Total Bilirubin 0.4 MG/DL Aspartate Amino Transf 10 U/L (AST/SGOT) Alanine Aminotransferase 10 U/L (ALT/SGPT) Alkaline Phosphatase 51 U/L Total Protein 6.5 GM/DL Albumin 2.2 GM/DL Microbiology Date/Time Procedure Status Source Growth 04/09/16 07:20 Aerobic Blood Culture - Preliminary Resulted Blood Peripheral NO GROWTH IN 2 DAYS 04/09/16 07:20 Anaerobic Blood Culture - Preliminary Resulted Blood Peripheral NO GROWTH IN 2 DAYS 04/09/16 07:20 Aerobic Blood Culture - Preliminary Resulted Blood Peripheral NO GROWTH IN 2 DAYS 04/09/16 07:20 Anaerobic Blood Culture - Preliminary Resulted Blood Peripheral NO GROWTH IN 2 DAYS Imaging Last Impressions Renal Ultrasound 04/09/16 Signed Impressions: Service Date/Time: Saturday, April 09, 2016 10:37 - CONCLUSION: Normal renal sonogram. Dae Paredes MD Cervical Spine MRI 04/06/16 Signed Impressions: Service Date/Time: Wednesday, April 06, 2016 15:23 - CONCLUSION: Nonspecific soft tissue signal enhancement as described above. Degenerative changes in the cervical spine with mild cervical spinal stenosis. Jaret Patel MD FACR Head CT 04/04/16955 Signed Impressions: Service Date/Time: Monday, April 04, 2016 10:22 - CONCLUSION: 1. No acute intracranial abnormality. 2. Mild mucosal thickening within the right maxillary sinus. Akbar Singh MD Cervical Spine CT 04/04/16955 Signed Impressions: Service Date/Time: Monday, April 04, 2016 10:22 - CONCLUSION: 1. Degenerative changes without fracture. Jaret Patel MD FACR Lumbar Puncture Fluoroscopy 04/04/16 0000 Signed Impressions: Service Date/Time: Friday, March 01, 2002 23:34 - CONCLUSION: Uncomplicated fluoroscopically guided lumbar puncture. Kvgn Lyles MD Physical Exam GENERAL: This is a well-nourished, well-developed patient, in no apparent distress. Stigmata of substatial weight loss present SKIN: No rashes, ecchymoses or lesions. Cool and dry. EYES: Pupils equal round and reactive. Extraocular motions intact. No scleral icterus. No injection or drainage. NECK: Trachea midline. No JVD or lymphadenopathy. Supple, very tender at the nape of his neck no swelling or redness , full ROM in the neck minimal pain minimally tender to palpation more so on the left side CARDIOVASCULAR: Regular rate and rhythm without murmurs, gallops, or rubs. RESPIRATORY: Clear to auscultation. Breath sounds equal bilaterally. No wheezes , rales, or rhonchi. GASTROINTESTINAL: Abdomen soft, non-tender, nondistended. No hepato-splenomegaly , or palpable masses. No guarding. MUSCULOSKELETAL: Extremities without clubbing, cyanosis, or edema. NEUROLOGICAL: Awake and alert. Cranial nerves II through XII intact. Motor and sensory grossly within normal limits. Five out of 5 muscle strength in all muscle groups. Normal speech. : non distended bladder Assessment & Plan Remarks (1) Cephalgia, improved on empriric abx (CFTX) CSF not favouring menigitis continue rocephin MRI with soft tissue enchancement ? myositis New L flank pain and new fever - resolved Hematuria, h/o kidney stones - US unremarkbale Mild leukocytosis - new rechk ESR fu BC untill final pt needs to be eval'd by urologist for hematuria (can be done as o/p) repeat MRI if cont to have residual neck pain after d/c Possible dc tomorrow if cont to improve and no new findings no abx planned p d/c fu WBC dw Dr Ministerio Dnaiels,Akanksha Herzog MD Apr 11, 2016 19:18
[2016-04-12] VITALS: BP 163/92; PULSE 75; RESP 20; TEMP 98.1; O2SAT 96
[2016-04-12 04:00] VITALS: BP 161/95; PULSE 76; RESP 20; TEMP 97; O2SAT 95
[2016-04-12] MEDS: ACETAMINOPHEN/HYDROcodone 325 MG/5 MG TAB PO PRN (04:06)
[2016-04-12] MEDS: cloNIDine HCL 0.1 MG TAB PO PRN (04:57)
[2016-04-12 05:27] LABS: AUTOMATED NEUTROPHIL # 6.7 TH/MM3 (1.8-7.7); BASOPHIL % 0.4 % (0.0-2.0); EOSINOPHIL # 0.3 TH/MM3 (0-0.4); EOSINOPHIL % 2.8 % (0.0-4.0); HEMATOCRIT 38.3 % (39.0-51.0); HEMO FLAGS DIFF FINAL; LYMPH % 15.9 % (9.0-44.0); LYMPHOCYTE # 1.6 TH/MM3 (1.0-4.8); MEAN CELL VOLUME 94.3 FL (80.0-100.0); MEAN CORPUSCULAR HEMOGLOBIN 31.1 PG (27.0-34.0); MONO % 13.1 % (0.0-8.0); NEUT % 67.8 % (16.0-70.0); PLATELET COUNT 391 TH/MM3 (150-450); RED BLOOD COUNT 4.06 MIL/MM3 (4.50-5.90); RED CELL DISTRIBUTION WIDTH 12.5 % (11.6-17.2); WHITE BLOOD COUNT 9.9 TH/MM3 (4.0-11.0)
[2016-04-12 05:35] LABS: CHLORIDE 101 MEQ/L (98-107); POTASSIUM 3.6 MEQ/L (3.5-5.1); SODIUM (NA) 141 MEQ/L (136-145)
[2016-04-12 05:40] LABS: ANION GAP 9 MEQ/L (5-15); BLOOD UREA NITROGEN 8 MG/DL (7-18)
[2016-04-12 05:43] LABS: ALT (GPT) 16 U/L (12-78); AST (GOT) 13 U/L (15-37); GLOMERULAR FILTRATION RATE 128 ML/MIN (>89)
[2016-04-12 05:45] LABS: TOTAL BILIRUBIN ADULT 0.2 MG/DL (0.2-1.0)
[2016-04-12 05:46] LABS: ALKALINE PHOSPHATASE 64 U/L (45-117)
[2016-04-12 06:21] VITALS: BP 160/92
[2016-04-12 08:13] VITALS: BP 153/90; PULSE 73; RESP 18; TEMP 97; O2SAT 97
[2016-04-12] MEDS: SODIUM CHLORIDE 0.9% FLUSH 5 ML FLUSH FLUSH SCH (08:21)
[2016-04-12] MEDS: ENALAPRIL MALEATE 5 MG TAB PO SCH (08:22)
[2016-04-12] MEDS: METOPROLOL TARTRATE 25 MG TAB PO SCH (08:22)
[2016-04-12] MEDS: PANTOPRAZOLE SOD 40 MG DELAYED RELEASE TAB PO SCH (08:22)
[2016-04-12] MEDS ORDERED: ENAL10TA PO (09:18)
--- NOTE | 2016-04-17 04:51 | MD ---
cc: PUNEET ABBASI MD ADMISSION DATE: 04/04/2016 DISCHARGE DATE: 04/12/2016 Okay to discharge the patient. CONDITION AT THE TIME OF DISCHARGE: Satisfactory. ACTIVITY: As tolerated. DIET: Cardiac diet. ALLERGIES: No drug allergy. DISCHARGE MEDICATIONS: Enalapril 10 milligrams p.o. daily Metoprolol 25 milligrams twice a day. DISCHARGE INSTRUCTIONS: Patient advised to follow up with Infectious Disease, PCP and urology in one week. ADMITTING DIAGNOSIS: Severe neck pain, most likely secondary to neck muscle spasm. Meningitis ruled out. CSF done shows protein of 54, glucose of 72. Herpes simplex virus workup negative. Infectious Disease, Dr. Daniels, saw the patient, did not think the patient had meningitis. Patient status post MRI of the cervical spine done shows mild spinal stenosis. ____ negative so far. History of hypertension. Patient's blood pressure was high. Enalapril increased from 5 milligrams to 10 milligrams. History of kidney stone. Episode of nonsustained ventricular tachycardia during hospital stay. Magnesium level was normal. Cardiology saw the patient, increased metoprolol to 25 milligrams twice a day. HOSPITAL COURSE: This is a 70 year-old male admitted with headache, neck stiffness, and meningitis ruled out. The patient remained stable in the hospital except for one episode of nonsustained non V-tach which resolved by itself. Other than that, nothing significant. The patient had mild leukocytosis which has resolved. The patient had anemia with a hemoglobin of 12.6. PT 10.5, INR 1.0, APTT 29.9. Urine examination done shows 10 to 14 RBCs, advised to follow with urology. Lyme disease titer is negative, also herpes simplex virus titer is negative. Further details in the medical record. Puneet Abbasi MD EA/AYANNA /9:23 AM /4:21 AM
== END 2016-04-12 10:15 | disposition home or self-care (01) | DRG 556 ==
LOC: PHED 08:49 → PHEDA 12:04 → PH3B 14:29
PROVIDERS: ADMIT Specialist; ATTEND Specialist
PROC: 0W993ZZ Drainage of Right Pleural Cavity, Percutaneous Approach (ICD-10-PCS; principal; 2016-04-04)
DX: M62.838 Other muscle spasm (principal); I47.2 Ventricular tachycardia; I25.5 Ischemic cardiomyopathy; M48.02 Spinal stenosis, cervical region; R31.9 Hematuria, unspecified; D64.9 Anemia, unspecified; M54.2 Cervicalgia; I10 Essential (primary) hypertension; R51 Headache; Z87.442 Personal history of urinary calculi; I25.2 Old myocardial infarction; F12.10 Cannabis abuse, uncomplicated; M43.6 Torticollis; Z87.891 Personal history of nicotine dependence
CPT/HCPCS: 62270; 70450; 72125; 72156; 76775; 77003; 80048; 80053; 80202; 81001; 82565; 82945; 83735; 84157; 85025; 85610; 85652; 85730; 86617; 87040; 87070; 87205; 87529; 89051; 96374; 96375; A9579; J0133; J0696; J1170; J2270; J2405; J7030

== ENCOUNTER 2016-04-21 08:26 | Emergency (ER) | payer MEDICARE, OTHER ==
[~2016-04-21] VITALS: Ht 182.9 cm; Wt 80.0 kg
[~2016-04-21 08:26] MED LIST changes: -ASPI325T PO; +ENAL10TA PO; -ENAL5 PO; -METO25 PO; +METO25TA3 PO; -NITR.4 SL
[2016-04-21 08:32] VITALS: BP 125/76; PULSE 72; RESP 18; TEMP 97.5; O2SAT 98
[2016-04-21 09:35] VITALS: BP 124/76; PULSE 72; RESP 16; O2SAT 98
[2016-04-21] MEDS ORDERED: IBUP-232 PO (09:40)
[2016-04-21 10:05] LABS: AUTOMATED NEUTROPHIL # 10.8 TH/MM3 (1.8-7.7); BASOPHIL # 0.1 TH/MM3 (0-0.2); BASOPHIL % 0.4 % (0.0-2.0); EOSINOPHIL # 0.2 TH/MM3 (0-0.4); EOSINOPHIL % 1.3 % (0.0-4.0); HEMATOCRIT 42.9 % (39.0-51.0); LYMPH % 14.5 % (9.0-44.0); LYMPHOCYTE # 2.1 TH/MM3 (1.0-4.8); MEAN CELL VOLUME 94.4 FL (80.0-100.0); MEAN CORPUSCULAR HEMOGLOBIN 30.2 PG (27.0-34.0); MONO % 9.9 % (0.0-8.0); NEUT % 73.9 % (16.0-70.0); PLATELET COUNT 642 TH/MM3 (150-450); RED BLOOD COUNT 4.55 MIL/MM3 (4.50-5.90); RED CELL DISTRIBUTION WIDTH 13.9 % (11.6-17.2); WHITE BLOOD COUNT 14.6 TH/MM3 (4.0-11.0)
[2016-04-21 10:07] LABS: HEMO FLAGS DIFF FINAL
[2016-04-21 10:15] LABS: POTASSIUM 4.4 MEQ/L (3.5-5.1)
[2016-04-21 10:18] LABS: BICARBONATE 27.4 MEQ/L (21.0-32.0)
--- NOTE | 2016-04-21 10:39 | PD ---
HPI Chief Complaint: Musculoskeletal Complaint Time Seen by Provider: 09:39 Travel History International Travel<30 days: No Contact w/Intl Traveler<30days: No Traveled to known affect area: No History of Present Illness HPI This 70-year-old man presents to the emergency department complaining of recurrent neck pain. States she was knocked over playing softball the beginning of March. He is admitted to the hospital the very 6 with headache and neck pain. He had an elevated white count. He extensive workup including CT MRI and LP that revealed only some evidence of nonspecific soft tissue enhancement in the interspinous ligaments in the soft tissues of the neck C2-3 and C3 4. His diagnosis of myositis. Cultures were negative. He was discharged outpatient follow-up with Dr. Perez. He is doing well at home after discharge week or so ago. Starting last night started having worsening neck pain, pain with movement of the neck. No fevers or chills. He had some weakness in his left arm yesterday but he often has weakness due to previous shoulder injuries. No numbness or tingling. No other complaints. History Past Medical History Medical History: Denies Significant Hx Tetanus Vaccination: Unknown Influenza Vaccination: No Social History Alcohol Use: Yes (occas) Tobacco Use: No Allergies-Medications (Allergen,Severity, Reaction): Coded Allergies: No Known Allergies (Unverified , 04/21/16) Reported Meds & Prescriptions Reported Meds & Active Scripts Active Enalapril (Enalapril Maleate) 10 Mg Tab 10 Mg PO DAILY Metoprolol Tartrate 25 Mg Tab 25 Mg PO BID Reported Ibuprofen 600 Mg Tab 600 Mg PO QID Review of Systems Except as stated in HPI: all other systems reviewed are Neg Physical Exam Narrative GENERAL: Well-appearing 70-year-old man, no acute distress. SKIN: Warm and dry. HEAD: Atraumatic. Normocephalic. EYES: Pupils equal and round. No scleral icterus. No injection or drainage. ENT: No nasal bleeding or discharge. Mucous membranes pink and moist. NECK: Trachea midline. No JVD. CARDIOVASCULAR: Regular rate and rhythm. No murmur appreciated. RESPIRATORY: No accessory muscle use. Clear to auscultation. Breath sounds equal bilaterally. GASTROINTESTINAL: Abdomen soft, non-tender, nondistended. Hepatic and splenic margins not palpable. MUSCULOSKELETAL: No obvious deformities. No edema. NEUROLOGICAL: Awake and alert. No obvious cranial nerve deficits. Strength full and equal upper and lower extremities with the exception of weakness in the left arm with abduction of the shoulder against resistance. Grossly normal sensation to light touch throughout. Mildly diminished reflexes in the upper extremities, 2+ in the biceps, 1+ in the brachial radialis, symmetric. PSYCHIATRIC: Appropriate mood and affect; insight and judgment normal. Data Data Last Documented VS Vital Signs Date Time Temp Pulse Resp B/P Pulse Ox O2 Delivery O2 Flow Rate FiO2 04/21/16 13:16 78 16 131/79 97 Room Air 04/21/16 08:32 97.5 Orders Complete Blood Count With Diff (04/21/16 09:39) Basic Metabolic Panel (Bmp) (04/21/16 09:39) Westergren Sedimentation Rate (04/21/16 09:39) C-Reactive Protein (Crp) (04/21/16 09:39) Iv Access Insert/Monitor (04/21/16 09:39) Mri C Spine W&W/O Contrast (04/21/16 ) Gadodiamide Pf Inj (Omniscan Pf Inj) (04/21/16 12:07) Labs Laboratory Tests Test 04/21/16 09:56 White Blood Count 14.6 TH/MM3 Red Blood Count 4.55 MIL/MM3 Hemoglobin 13.7 GM/DL Hematocrit 42.9 % Mean Corpuscular Volume 94.4 FL Mean Corpuscular Hemoglobin 30.2 PG Mean Corpuscular Hemoglobin 32.0 % Concent Red Cell Distribution Width 13.9 % Platelet Count 642 TH/MM3 Mean Platelet Volume 6.9 FL Neutrophils (%) (Auto) 73.9 % Lymphocytes (%) (Auto) 14.5 % Monocytes (%) (Auto) 9.9 % Eosinophils (%) (Auto) 1.3 % Basophils (%) (Auto) 0.4 % Neutrophils # (Auto) 10.8 TH/MM3 Lymphocytes # (Auto) 2.1 TH/MM3 Monocytes # (Auto) 1.4 TH/MM3 Eosinophils # (Auto) 0.2 TH/MM3 Basophils # (Auto) 0.1 TH/MM3 CBC Comment DIFF FINAL Differential Comment Erythrocyte Sedimentation Rate 59 mm/hr Sodium Level 135 MEQ/L Potassium Level 4.4 MEQ/L Chloride Level 99 MEQ/L Carbon Dioxide Level 27.4 MEQ/L Anion Gap 9 MEQ/L Blood Urea Nitrogen 7 MG/DL Creatinine 0.72 MG/DL Estimat Glomerular Filtration 108 ML/MIN Rate Random Glucose 104 MG/DL Calcium Level 9.1 MG/DL C-Reactive Protein 7.75 MG/DL [facility] Medical Decision Making Medical Screen Exam Complete: Yes Emergency Medical Condition: Yes Interpretation(s) LABS: CBC remarkable for mild leukocytosis, elevated platelet count Sedimentation rate 59 BMP unremarkable CRP 7.75 MRI cervical spine: No change in this disease or degenerative findings. Signal changes in the interspinous ligament region is less prominent compared to previous. No new acute findings. Tiny fluids in layers in the anterior neck about the level the hyoid bone could be further evaluated with CT imaging of the neck. Differential Diagnosis myositis, discitis, deep space infection, other Narrative Course Medical decision making 70-year-old male with neck pain, seems to be from a traumatic myositis from a softball injury. Concern for infectious etiology on her recent prolonged admission. Cultures were all negative. Plan for follow-up with ID. Started having recurrent pain. According to Dr. Garcia's most recent progress note, we would need repeat MRI if pain continued. We'll check repeat labs, repeat MRI , likely supportive treatment with NSAIDs and muscle relaxers. Diagnosis Primary Impression: Neck pain Additional Instructions: Follow-up with Dr. Perez as planned. Use anti-inflammatory medicines and muscle relaxers as needed for neck pain and stiffness. Follow-up with your primary physician regarding small cysts of the anterior neck seen on MRI. Return to the emergency department for any worsening numbness tingling weakness or any other new or worsening symptoms. Med/Other Pt SpecificInfo: Prescription(s) given Scripts Diazepam (Valium)5 Mg Tab5 Mg PO TID PRN (MUSCLE SPASM) #12 TAB Ref 0 Prov:Tyler Chowdary MD 04/21/16 Naproxen (Naprosyn)250 Mg [id number] Mg PO BID #14 TAB Prov:Tyler Chowdary MD 04/21/16 Disposition: 01 DISCHARGE HOME Condition: Stable Tyler Chowdary MD Apr 21, 2016 10:39
[2016-04-21] MEDS ORDERED: GADODIAMIDE PF 287 MG/ML 20 ML VIAL (for RAD MRI) IV ONE (12:07)
[2016-04-21 13:16] VITALS: BP 131/79; PULSE 78; RESP 16; O2SAT 97
--- NOTE | 2016-04-21 13:43 | RADHPO ---
EXAM DATE/TIME: 04/21/2016 12:05 [facility] COMPARISON: CT CERVICAL SPINE W/O CONTRAST, April 04, 2016, 10:22. MRI CERVICAL SPINE W & W/O CONTRAST, 2016, 15:23. INDICATIONS : Myostitis. Stiffness in neck with soreness at the base of the skull. CONTRAST: 16 cc Omniscan (gadodiamide) IV GFR: Date: Apr 21 2016 MEDICAL HISTORY : Hypertension. SURGICAL HISTORY : Inguinal hernia repair. Cervical spine surgery and left rotator cuff surgery. ENCOUNTER: Initial ACUITY: 1 day PAIN SCORE: 0/10 LOCATION: Neck. TECHNIQUE: Multiplanar, multisequence MRI examination of the cervical spine was performed. FINDINGS: No significant change in disc disease and degenerative findings compared to the previous cervical spi ne MRI. Signal changes in the interspinous ligament region is less prominent on today's study. No new acute findings are identified. There are tiny fluid signal areas in the anterior neck at about the level of the hyoid midline and ju st left paramedian which may be small cystic masses or collections in this location, less than a cent imeter in size. Clinical correlation recommended. These could be further evaluated with contrasted so ft tissue CT neck if clinically indicated. CONCLUSION: Stable to improved MR appearance of the spine. Small nonspecific masses or collections in the anterior neck might be further evaluated with contrast ed soft tissue CT neck if clinically indicated. Aurelio Villarreal MD on April 21, 2016 at 13:31 Board Certified Radiologist. This report was verified electronically.
[2016-04-21] MEDS ORDERED: NAPR250T57 PO (13:53)
[2016-04-21] MEDS ORDERED: DIAZ5 PO (13:53)
== END 2016-04-21 14:22 | disposition home or self-care (01) ==
LOC: PHED 08:26
DX: M54.2 Cervicalgia (principal); M60.80 Other myositis, unspecified site
CPT/HCPCS: 72156; 80048; 85025; 85652; 86140; 99284; A9579